=== PATIENT | female | born 1975 | race Hispanic/Latino ===

== ENCOUNTER 2017-08-12 20:38 | Emergency (ER) | payer MEDICAID ==
[2017-08-12 21:05] LABS: BASOPHILS % (AUTO) 0.6 % (0.0-5.0); HEMATOCRIT 39.3 % (36-48); LYMPHOCYTES % (AUTO) 23.8 % (21.0-51.0); MEAN CORPUSCULAR HEMOGLOBIN 30.4 pg (27.0-33.0); MEAN CORPUSCULAR VOLUME 86.9 fL (79-99); MONOCYTES % (AUTO) 7.5 % (3.0-13.0); NEUTROPHILS % (AUTO) 67.1 % (40.0-77.0); PLATELET COUNT (AUTO) 263 K/uL (130-400); RED BLOOD CELL COUNT(AUTO) 4.53 MIL/uL (4.00-5.50); RED CELL DISTRIBUTION WIDTH 13.2 % (11.0-15.5); WHITE BLOOD COUNT (AUTO) 8.8 K/uL (4.8-10.8)
[2017-08-12 21:14] LABS: AMPHET/METH SCREEN,URINE NEGATIVE (NEGATIVE); BARBITURATE SCREEN, URINE NEGATIVE (NEGATIVE); BENZODIAZEPINES SCREEN,URINE NEGATIVE (NEGATIVE); CANNABINOID SCREEN,URINE POSITIVE (NEGATIVE); COCAINE SCREEN,URINE POSITIVE (NEGATIVE); OPIATE SCREEN,URINE NEGATIVE (NEGATIVE); PHENCYCLIDINE SCREEN,URINE NEGATIVE (NEGATIVE)
[2017-08-12 21:20] LABS: CARBON DIOXIDE 29 mmol/L (21-32); CHLORIDE 102 mmol/L (101-111); CREATININE 0.8 mg/dL (0.5-1.5); GLOMERULAR FILTR. RATE CALC 84 mL/min (>60); GLUCOSE,RANDOM 107 mg/dL (70-105); INR 0.9 (0.85-1.15); PARTIAL THROMBOPLASTIN TIME 29.2 SEC (26.3-35.5); POTASSIUM 3.9 mmol/L (3.5-5.1); PROTHROMBIN TIME 9.5 SEC (9.6-11.6); SODIUM SERUM 138 mmol/L (136-145); UREA NITROGEN, BLOOD 11 mg/dL (7-18)
[2017-08-12] MEDS ORDERED: ASPIRIN 81MG TAB.CHEW ONE (21:30)
[2017-08-12] MEDS ORDERED: DEXAMETHASONE SOD PHOSPHATE 10MG/ML 1ML VIAL ONE (21:31)
[2017-08-12] MEDS ORDERED: ONDANSETRON HCL 4 MG/2 ML VIAL ONE (21:31)
[2017-08-12 21:32] LABS: B-TYPE NATRIURETIC PEPTIDE 10 pg/mL (0-100)
[2017-08-12] MEDS ORDERED: IPRATROPIUM/ALBUTEROL SULFATE 3 ML SOLUTION IH ONE (21:37)
[2017-08-12 21:52] LABS: ALANINE AMINOTRANSFERASE 25 U/L (12-78); ALBUMIN 3.6 g/dL (3.5-5.0); ASPARTATE AMINOTRANSFERASE 17 U/L (10-37); BILIRUBIN,TOTAL 0.4 mg/dL (0.2-1.0); CREATINE KINASE MB < 0.5 ng/mL (0.5-3.6); CREATINE KINASE, TOTAL 76 U/L (21-232); MYOGLOBIN 20 ng/mL (10-92); TOTAL PROTEIN, SERUM 7.6 g/dL (6.0-8.3)
== END 2017-08-12 22:27 | disposition home or self-care (01) ==
LOC: EDH 20:38
DX: J45.901 Unspecified asthma with (acute) exacerbation (principal); R07.9 Chest pain, unspecified; F14.10 Cocaine abuse, uncomplicated; Z88.0 Allergy status to penicillin; Z88.6 Allergy status to analgesic agent
CPT/HCPCS: 36415; 71045; 80053; 80305; 82550; 82553; 83874; 83880; 84484; 85025; 85610; 85730; 93005; 94640; 94761; 96374; 96375; 99285; J1100; J2405

== ENCOUNTER 2017-11-17 21:16 | Emergency (ER) | payer MEDICAID ==
[2017-11-17] MEDS ORDERED: TETRACAINE HCL 0.5% 4 ML OPHTH SOLN ONE (21:44)
== END 2017-11-17 21:59 | disposition home or self-care (01) ==
LOC: EDH 21:16
DX: T16.2XXA Foreign body in left ear, initial encounter (principal); Z88.0 Allergy status to penicillin; Z88.6 Allergy status to analgesic agent; X58.XXXA Exposure to other specified factors, initial encounter; Y93.89 Activity, other specified; Y92.89 Other specified places as the place of occurrence of the external cause; Y99.8 Other external cause status
CPT/HCPCS: 99282

== ENCOUNTER 2017-11-26 01:28 | Emergency (ER) | payer MEDICAID ==
[2017-11-26] MEDS ORDERED: SODIUM CHLORIDE 0.9% 1000ML 1,000 ML IV ONE (01:59)
[2017-11-26 02:00] LABS: BASOPHILS % (AUTO) 0.7 % (0.0-5.0); EOSINOPHILS % (AUTO) 0.8 % (0.0-8.0); HEMATOCRIT 40.6 % (36-48); LYMPHOCYTES % (AUTO) 20.2 % (21.0-51.0); MEAN CORPUSCULAR HEMOGLOBIN 30.2 pg (27.0-33.0); MEAN CORPUSCULAR HGB CONC 34.6 g/dL (32.0-36.0); MEAN CORPUSCULAR VOLUME 87.4 fL (79-99); MONOCYTES % (AUTO) 6.6 % (3.0-13.0); NEUTROPHILS % (AUTO) 71.7 % (40.0-77.0); NUCLEATED RED BLOOD CELLS 0.1 % (0.0-0.19); PLATELET COUNT (AUTO) 253 K/uL (130-400); RED BLOOD CELL COUNT(AUTO) 4.65 MIL/uL (4.00-5.50); RED CELL DISTRIBUTION WIDTH 13.1 % (11.0-15.5); WHITE BLOOD COUNT (AUTO) 14.2 K/uL (4.8-10.8)
[2017-11-26 02:09] LABS: CREATININE 0.9 mg/dL (0.5-1.5); POTASSIUM 3.8 mmol/L (3.5-5.1)
[2017-11-26 02:12] LABS: APPEARANCE,URINE Clear (CLEAR); BILIRUBIN,URINE Negative (NEGATIVE); COLOR,URINE Yellow (YELLOW); GLUCOSE, URINE (UA) Negative (NEGATIVE); KETONES,URINE Negative (NEGATIVE); LEUKOCYTE ESTERASE ,URINE Trace (NEGATIVE); NITRATE,URINE Negative (NEGATIVE); OCCULT BLOOD,URINE Trace (NEGATIVE); PH,URINE 7.5 (5.0-8.0); PROTEIN,URINE Negative (NEGATIVE); UROBILINOGEN,URINE 0.2 mg/dL (0.2-1.0)
[2017-11-26 02:14] LABS: ALBUMIN 3.5 g/dL (3.5-5.0); BILIRUBIN,TOTAL 0.3 mg/dL (0.2-1.0); TOTAL PROTEIN, SERUM 7.4 g/dL (6.0-8.3)
[2017-11-26 02:21] LABS: BACTERIA,URINE Few /HPF (None Seen); RBC,URINE 0-1 /HPF (0-1); SQUAMOUS EPITHELIAL CELL,UR Moderate /HPF (0-2)
[2017-11-26] MEDS ORDERED: HYDROMORPHONE 1 MG/1 ML AMP ONE (02:55)
[2017-11-26] MEDS ORDERED: IOPAMIDOL-370 75 ML VIAL IV ONE (03:14)
[2017-11-26] MEDS ORDERED: ONDANSETRON HCL 4 MG/2 ML VIAL ONE (03:36)
[2017-11-26] MEDS ORDERED: KETOROLAC TROMETHAMINE 30MG/ML ONE (03:36)
== END 2017-11-26 05:44 | disposition home or self-care (01) ==
LOC: EDH 01:28
DX: K52.9 Noninfective gastroenteritis and colitis, unspecified (principal); Z88.0 Allergy status to penicillin; Z88.6 Allergy status to analgesic agent
CPT/HCPCS: 36415; 71045; 74177; 80053; 81001; 82550; 83690; 84484; 84703; 85025; 85378; 93005; 96361; 96374; 96375; 99285; J1170; J1885; J2405; J7030; Q9967

== ENCOUNTER 2018-04-03 05:19 | Emergency (ER) | payer MEDICAID ==
[2018-04-03] MEDS ORDERED: ONDANSETRON HCL 4 MG/2 ML VIAL ONE (05:34)
[2018-04-03] MEDS ORDERED: DEXAMETHASONE SOD PHOSPHATE 10MG/ML 1ML VIAL ONE (05:34)
[2018-04-03] MEDS ORDERED: KETOROLAC TROMETHAMINE 30MG/ML ONE (05:35)
[2018-04-03] MEDS ORDERED: SODIUM CHLORIDE 0.9% 1000ML 1,000 ML IV ONE (05:35)
[2018-04-03 05:39] LABS: BASOPHILS % (AUTO) 0.7 % (0.0-5.0); HEMATOCRIT 42.5 % (36-48); LYMPHOCYTES % (AUTO) 28.8 % (21.0-51.0); MEAN CORPUSCULAR HEMOGLOBIN 29.9 pg (27.0-33.0); MEAN CORPUSCULAR HGB CONC 34.3 g/dL (32.0-36.0); MEAN CORPUSCULAR VOLUME 87.3 fL (79-99); MONOCYTES % (AUTO) 10.4 % (3.0-13.0); NEUTROPHILS % (AUTO) 59.1 % (40.0-77.0); PLATELET COUNT (AUTO) 253 K/uL (130-400); RED BLOOD CELL COUNT(AUTO) 4.87 MIL/uL (4.00-5.50); RED CELL DISTRIBUTION WIDTH 13.1 % (11.0-15.5); WHITE BLOOD COUNT (AUTO) 8.3 K/uL (4.8-10.8)
[2018-04-03 05:51] LABS: CREATININE 0.7 mg/dL (0.5-1.5); POTASSIUM 3.7 mmol/L (3.5-5.1)
[2018-04-03 05:56] LABS: ALBUMIN 3.4 g/dL (3.5-5.0); BILIRUBIN,DIRECT 0.1 mg/dL (0.0-0.3); BILIRUBIN,TOTAL 0.3 mg/dL (0.2-1.0); TOTAL PROTEIN, SERUM 6.8 g/dL (6.0-8.3)
[2018-04-03 06:07] LABS: APPEARANCE,URINE Cloudy (CLEAR); BILIRUBIN,URINE Negative (NEGATIVE); COLOR,URINE Yellow (YELLOW); GLUCOSE, URINE (UA) Negative (NEGATIVE); KETONES,URINE Trace mg/dL (NEGATIVE); LEUKOCYTE ESTERASE ,URINE Trace (NEGATIVE); NITRATE,URINE Negative (NEGATIVE); OCCULT BLOOD,URINE Moderate (NEGATIVE); PH,URINE 5.5 (5.0-8.0); PROTEIN,URINE Negative (NEGATIVE); UROBILINOGEN,URINE 0.2 mg/dL (0.2-1.0)
[2018-04-03 06:09] LABS: HCG,QUAL RESULT NEGATIVE (NEGATIVE)
[2018-04-03 06:14] LABS: AMPHET/METH SCREEN,URINE NEGATIVE (NEGATIVE); BARBITURATE SCREEN, URINE NEGATIVE (NEGATIVE); BENZODIAZEPINES SCREEN,URINE NEGATIVE (NEGATIVE); CANNABINOID SCREEN,URINE POSITIVE (NEGATIVE); COCAINE SCREEN,URINE POSITIVE (NEGATIVE); OPIATE SCREEN,URINE NEGATIVE (NEGATIVE); PHENCYCLIDINE SCREEN,URINE NEGATIVE (NEGATIVE)
[2018-04-03] MEDS ORDERED: IPRATROPIUM/ALBUTEROL SULFATE 3 ML SOLUTION IH ONE (06:21)
[2018-04-03 06:53] LABS: RBC,URINE 0-1 /HPF (0-1); WBC,URINE 0-1 /HPF (0-1)
[2018-04-03 06:54] LABS: BACTERIA,URINE Rare /HPF (None Seen); SQUAMOUS EPITHELIAL CELL,UR Many /HPF (0-2)
== END 2018-04-03 07:22 | disposition home or self-care (01) ==
LOC: EDH 05:19
DX: J20.9 Acute bronchitis, unspecified (principal); R10.9 Unspecified abdominal pain; R11.10 Vomiting, unspecified; F14.10 Cocaine abuse, uncomplicated; Z88.0 Allergy status to penicillin; Z88.6 Allergy status to analgesic agent
CPT/HCPCS: 36415; 71045; 74176; 80048; 80076; 80305; 81001; 81025; 82550; 83690; 84484; 85025; 93005; 94640; 96361; 96374; 96375; 99285; J1100; J1885; J2405; J7030

== ENCOUNTER 2018-05-20 10:44 | Emergency (ER) | payer MEDICAID ==
[2018-05-20] MEDS ORDERED: ONDANSETRON HCL 4 MG/2 ML VIAL ONE (11:21)
[2018-05-20 11:33] LABS: BASOPHILS % (AUTO) 0.2 % (0.0-5.0); EOSINOPHILS % (AUTO) 0.3 % (0.0-8.0); HEMATOCRIT 45.3 % (36-48); MEAN CORPUSCULAR HEMOGLOBIN 29.7 pg (27.0-33.0); MEAN CORPUSCULAR HGB CONC 33.4 g/dL (32.0-36.0); MEAN CORPUSCULAR VOLUME 88.9 fL (79-99); MONOCYTES % (AUTO) 5.4 % (3.0-13.0); NEUTROPHILS % (AUTO) 88.1 % (40.0-77.0); PLATELET COUNT (AUTO) 235 K/uL (130-400); RED BLOOD CELL COUNT(AUTO) 5.09 MIL/uL (4.00-5.50); RED CELL DISTRIBUTION WIDTH 13.5 % (11.0-15.5); WHITE BLOOD COUNT (AUTO) 16.1 K/uL (4.8-10.8)
[2018-05-20 11:34] LABS: APPEARANCE,URINE CLOUDY (CLEAR); BILIRUBIN,URINE MODERATE (NEGATIVE); COLOR,URINE YELLOW (YELLOW); GLUCOSE, URINE (UA) NEGATIVE (NEGATIVE); KETONES,URINE 15 mg/dL (NEGATIVE); LEUKOCYTE ESTERASE ,URINE NEGATIVE (NEGATIVE); NITRATE,URINE NEGATIVE (NEGATIVE); OCCULT BLOOD,URINE SMALL (NEGATIVE); PROTEIN,URINE 30 (NEGATIVE)
[2018-05-20 11:48] LABS: CREATININE 0.7 mg/dL (0.5-1.5); POTASSIUM 3.5 mmol/L (3.5-5.1)
[2018-05-20 11:51] LABS: HCG,QUAL RESULT NEGATIVE (NEGATIVE)
[2018-05-20 11:52] LABS: ALBUMIN 3.7 g/dL (3.5-5.0); BILIRUBIN,DIRECT 0.1 mg/dL (0.0-0.3); BILIRUBIN,TOTAL 0.3 mg/dL (0.2-1.0); TOTAL PROTEIN, SERUM 7.8 g/dL (6.0-8.3)
[2018-05-20] MEDS ORDERED: HYOSCYAMINE SULFATE 0.125 MG TAB.SUBL SL ONE (11:54)
[2018-05-20] MEDS ORDERED: FAMOTIDINE/PF 20 MG/2 ML VIAL IV ONE (11:54)
[2018-05-20 11:57] LABS: RBC,URINE 0-1 /HPF (0-1); WBC,URINE 0-1 /HPF (0-1)
[2018-05-20 11:58] LABS: BACTERIA,URINE Rare /HPF (None Seen); CALCIUM OXALATE CRYSTALS,UR Many /LPF (None Seen); MUCUS,URINE Moderate LPF (None Seen); SQUAMOUS EPITHELIAL CELL,UR Moderate /HPF (0-2)
[2018-05-20] MEDS ORDERED: KETOROLAC TROMETHAMINE 30MG/ML ONE (12:01)
[2018-05-20 12:58] LABS: AMPHET/METH SCREEN,URINE NEGATIVE (NEGATIVE); BARBITURATE SCREEN, URINE NEGATIVE (NEGATIVE); BENZODIAZEPINES SCREEN,URINE NEGATIVE (NEGATIVE); CANNABINOID SCREEN,URINE POSITIVE (NEGATIVE); COCAINE SCREEN,URINE POSITIVE (NEGATIVE); OPIATE SCREEN,URINE NEGATIVE (NEGATIVE); PHENCYCLIDINE SCREEN,URINE NEGATIVE (NEGATIVE)
== END 2018-05-20 13:06 | disposition home or self-care (01) ==
LOC: EDH 10:44
DX: K52.9 Noninfective gastroenteritis and colitis, unspecified (principal); E66.9 Obesity, unspecified; Z68.41 Body mass index [BMI] 40.0-44.9, adult; Z88.5 Allergy status to narcotic agent; Z88.0 Allergy status to penicillin; Z87.891 Personal history of nicotine dependence
CPT/HCPCS: 36415; 76705; 80048; 80076; 80305; 81001; 81025; 83690; 85025; 96365; 96375; 99284; J1885; J2405; J3490

== ENCOUNTER 2018-10-18 05:54 | Emergency (ER) | payer MEDICAID ==
[2018-10-18 06:06] LABS: APPEARANCE,URINE Clear (CLEAR); BILIRUBIN,URINE Negative (NEGATIVE); COLOR,URINE Yellow (YELLOW); GLUCOSE, URINE (UA) Negative (NEGATIVE); KETONES,URINE Negative (NEGATIVE); LEUKOCYTE ESTERASE ,URINE Trace (NEGATIVE); NITRATE,URINE Negative (NEGATIVE); OCCULT BLOOD,URINE Negative (NEGATIVE); PROTEIN,URINE Negative (NEGATIVE); UROBILINOGEN,URINE 0.2 mg/dL (0.2-1.0)
[2018-10-18 06:09] LABS: BACTERIA,URINE None Seen /HPF (None Seen); MUCUS,URINE None Seen LPF (None Seen); RBC,URINE None Seen /HPF (0-1); SQUAMOUS EPITHELIAL CELL,UR Rare /HPF (0-2); WBC,URINE 0-1 /HPF (0-1)
[2018-10-18] MEDS ORDERED: ACETAMINOPHEN 325 MG TAB ONE (06:35)
== END 2018-10-18 07:21 | disposition home or self-care (01) ==
LOC: EDH 05:54
DX: S40.012A Contusion of left shoulder, initial encounter (principal); L03.811 Cellulitis of head [any part, except face]; Z88.6 Allergy status to analgesic agent; Z88.0 Allergy status to penicillin; Z72.0 Tobacco use; Z98.890 Other specified postprocedural states; X58.XXXA Exposure to other specified factors, initial encounter; Y93.89 Activity, other specified; Y92.89 Other specified places as the place of occurrence of the external cause; Y99.8 Other external cause status
CPT/HCPCS: 81001; 81025

== ENCOUNTER 2019-09-10 11:12 | Emergency (ER) | payer MEDICAID, OTHER ==
[2019-09-10] MEDS ORDERED: ONDANSETRON HCL 4 MG/2 ML VIAL ONE (11:28)
[2019-09-10] MEDS ORDERED: KETOROLAC TROMETHAMINE 30MG/ML ONE (11:28)
[2019-09-10 12:07] LABS: APPEARANCE,URINE Cloudy (CLEAR); BILIRUBIN,URINE Negative (NEGATIVE); COLOR,URINE Yellow (YELLOW); GLUCOSE, URINE (UA) Negative (NEGATIVE); KETONES,URINE Negative (NEGATIVE); LEUKOCYTE ESTERASE ,URINE Negative (NEGATIVE); NITRATE,URINE Negative (NEGATIVE); OCCULT BLOOD,URINE Negative (NEGATIVE); PH,URINE 5.5 (5.0-8.0); PROTEIN,URINE Negative (NEGATIVE); UROBILINOGEN,URINE 0.2 mg/dL (0.2-1.0)
[2019-09-10 12:13] LABS: HCG,QUAL RESULT NEGATIVE (NEGATIVE)
[2019-09-10 12:15] LABS: AMPHET/METH SCREEN,URINE NEGATIVE (NEGATIVE); BARBITURATE SCREEN, URINE NEGATIVE (NEGATIVE); BENZODIAZEPINES SCREEN,URINE NEGATIVE (NEGATIVE); CANNABINOID SCREEN,URINE POSITIVE (NEGATIVE); COCAINE SCREEN,URINE POSITIVE (NEGATIVE); OPIATE SCREEN,URINE NEGATIVE (NEGATIVE); PHENCYCLIDINE SCREEN,URINE NEGATIVE (NEGATIVE); RBC,URINE 0-1 /HPF (0-1)
[2019-09-10 12:16] LABS: BACTERIA,URINE Few /HPF (None Seen); SQUAMOUS EPITHELIAL CELL,UR 50-100 /HPF (0-2); WBC,URINE 0-1 /HPF (0-1)
== END 2019-09-10 12:37 | disposition home or self-care (01) ==
LOC: EDH 11:12
DX: M54.5 Low back pain (principal); F14.10 Cocaine abuse, uncomplicated; R11.2 Nausea with vomiting, unspecified; Z88.0 Allergy status to penicillin; Z88.6 Allergy status to analgesic agent; Z98.890 Other specified postprocedural states
CPT/HCPCS: 80305; 81001; 81025; 96361; 96374; 96375; 99284; J1885; J2405

== ENCOUNTER 2022-02-28 17:34 | Emergency (ER) | payer OTHER ==
[~2022-02-28] VITALS: Ht 154.9 cm; Wt 103.4 kg
[2022-02-28 17:36] VITALS: BP 140/87
[2022-02-28] MEDS ORDERED: ONDANSETRON ODT 4MG TAB SL ONE (18:30)
== END 2022-02-28 19:02 | disposition left against medical advice (07) ==
LOC: EDH 17:34
DX: R51.9 Headache, unspecified (principal); R11.0 Nausea; H53.8 Other visual disturbances; Z88.0 Allergy status to penicillin; Z88.5 Allergy status to narcotic agent
CPT/HCPCS: 81025

== ENCOUNTER 2022-04-04 17:10 | Emergency (ER) | payer OTHER ==
[~2022-04-04] VITALS: Ht 152.4 cm; Wt 102.1 kg
[2022-04-04] MEDS ORDERED: IPRATROPIUM/ALBUTEROL SULFATE 3 ML SOLUTION IH ONE ×2 (17:30→17:34)
[2022-04-04] MEDS ORDERED: SOLU-MEDROL 125MG VIAL IVP ONE (17:30)
[2022-04-04 17:45] VITALS: BP 101/78
[2022-04-04] MEDS ORDERED: ALBUTEROL 0.083% 2.5 MG/3 ML INH IH ONE (18:30)
[2022-04-04] MEDS ORDERED: D-ME118S47 PO (20:03)
[2022-04-04] MEDS ORDERED: AZIT1PAC7 PO (20:03)
[2022-04-04] MEDS ORDERED: ALBU2.5V2 IH (20:03)
[2022-04-04] MEDS ORDERED: METH4TAB3 PO (20:03)
== END 2022-04-04 21:06 | disposition home or self-care (01) ==
LOC: EDH 17:10
DX: J45.901 Unspecified asthma with (acute) exacerbation (principal); Z20.822 Contact with and (suspected) exposure to COVID-19; Z88.0 Allergy status to penicillin; Z88.5 Allergy status to narcotic agent; Z79.52 Long term (current) use of systemic steroids
CPT/HCPCS: 99285; 96374; 71045; 87635; 87804 ×2; 94640 ×3; C9803; J2930

== ENCOUNTER 2022-07-22 20:02 | Emergency (ER) | payer OTHER ==
[~2022-07-22] VITALS: Ht 154.9 cm; Wt 102.1 kg
[~2022-07-22 20:02] MED LIST: ALBU2.5V2 IH; AZIT1PAC7 PO; D-ME118S47 PO; METH4TAB3 PO
[2022-07-22] MEDS ORDERED: KETOROLAC 30MG VIAL (30MG/ML) IM ONE (22:00)
[2022-07-23] MEDS ORDERED: IBUP-2070 PO (00:28)
[2022-07-23 00:43] VITALS: BP 125/62
== END 2022-07-23 00:44 | disposition home or self-care (01) ==
LOC: EDH 20:02
DX: S09.90XA Unspecified injury of head, initial encounter (principal); S50.02XA Contusion of left elbow, initial encounter; X58.XXXA Exposure to other specified factors, initial encounter; Y93.89 Activity, other specified; Y92.89 Other specified places as the place of occurrence of the external cause; Y99.8 Other external cause status; Z88.0 Allergy status to penicillin; Z88.5 Allergy status to narcotic agent; Z79.899 Other long term (current) drug therapy; Z98.890 Other specified postprocedural states
CPT/HCPCS: 99285; 72125; 70450; 73080; 71101; 96372; 93005 ×2; J1885

== ENCOUNTER 2023-10-25 22:42 | Inpatient (IN) | payer BC, OTHER ==
[~2023-10-25] VITALS: Ht 149.9 cm; Wt 101.3 kg
[~2023-10-25 22:42] MED LIST changes: +BROM118S48 PO; -D-ME118S47 PO; +IBUP-2070 PO
[2023-10-25] MEDS: ORPHENADRINE CITRATE 30 MG/ML ML IM ONE (23:05)
[2023-10-25] MEDS: KETOROLAC 30MG VIAL (30MG/ML) IM ONE (23:05)
[2023-10-25 23:29] LABS: BASOPHILS # (AUTO) 0.05 K/uL (0.00-0.20); BASOPHILS % (AUTO) 0.2 % (0.0-5.0); EOSINOPHILS # (AUTO) 0.05 K/uL (0.00-0.70); EOSINOPHILS % (AUTO) 0.2 % (0.0-8.0); HEMATOCRIT 41.1 % (36-48); IMMATURE GRANULOCYTE ABSOLUTE 0.19 K/uL (0-1); LYMPHOCYTES # (AUTO) 2.1 K/uL (1.0-4.8); LYMPHOCYTES % (AUTO) 10.1 % (21.0-51.0); MEAN CORPUSCULAR HEMOGLOBIN 30.3 pg (27.0-33.0); MEAN CORPUSCULAR HGB CONC 33.6 g/dL (32.0-36.0); MEAN CORPUSCULAR VOLUME 90.3 fL (79-99); MONOCYTES # (AUTO) 1.2 K/uL (0.1-1.0); MONOCYTES % (AUTO) 5.6 % (3.0-13.0); NEUTROPHILS # (AUTO) 16.9 K/uL (1.8-7.7); PLATELET COUNT (AUTO) 291 K/uL (130-400); RED BLOOD CELL COUNT(AUTO) 4.55 MIL/uL (4.00-5.50); RED CELL DISTRIBUTION WIDTH 12.8 % (11.0-15.5); WHITE BLOOD COUNT (AUTO) 20.4 K/uL (4.8-10.8)
[2023-10-25] MEDS: LACTATED RINGERS 1000ML 1,000 ML IV ONE (23:41)
[2023-10-25 23:55] LABS: CREATININE 0.8 mg/dL (0.5-1.0); POTASSIUM 3.7 mmol/L (3.5-5.1)
[2023-10-25 23:59] LABS: ALBUMIN 3.8 g/dL (3.5-5.0); BILIRUBIN,TOTAL 0.9 mg/dL (0.2-1.0)
[2023-10-26] MEDS: ONDANSETRON 4MG INJ IVP ONE (04:14)
[2023-10-26] MEDS: MEPERIDINE-PF 25 MG/ML SYG IM STA (04:16)
[2023-10-26 04:24] VITALS: TEMP 101.2
[2023-10-26] MEDS: ACETAMINOPHEN 500 MG TABLET PO ONE (04:24)
[2023-10-26 04:39] LABS: APPEARANCE,URINE CLOUDY (CLEAR); BILIRUBIN,URINE NEGATIVE (NEGATIVE); COLOR,URINE YELLOW (YELLOW); GLUCOSE, URINE (UA) NEGATIVE (NEGATIVE); KETONES,URINE 10 mg/dL (NEGATIVE); LEUKOCYTE ESTERASE ,URINE 25 Leu/uL (NEGATIVE); NITRATE,URINE 1+ (NEGATIVE); OCCULT BLOOD,URINE SMALL (NEGATIVE); PROTEIN,URINE 30 mg/dL (NEGATIVE); UROBILINOGEN,URINE 3 mg/dL (0.2-1.0)
[2023-10-26 04:46] LABS: AMPHET/METH SCREEN,URINE POSITIVE (NEGATIVE); BARBITURATE SCREEN, URINE NEGATIVE (NEGATIVE); BENZODIAZEPINES SCREEN,URINE NEGATIVE (NEGATIVE); CANNABINOID SCREEN,URINE POSITIVE (NEGATIVE); COCAINE SCREEN,URINE POSITIVE (NEGATIVE); OPIATE SCREEN,URINE NEGATIVE (NEGATIVE); PHENCYCLIDINE SCREEN,URINE NEGATIVE (NEGATIVE)
[2023-10-26 05:00] LABS: BACTERIA,URINE MOD /HPF (None Seen); MUCUS,URINE RARE LPF (None Seen); RBC,URINE 0-1 /HPF (0-1); SQUAMOUS EPITHELIAL CELL,UR FEW /HPF (0-2)
[2023-10-26] MEDS ORDERED: IOHEXOL-350 75 ML VIAL IV ONE (05:27)
[2023-10-26] MEDS: LEVOFLOXACIN 500 MG/D5W 100 ML 100 ML IV STA (06:56)
[2023-10-26] MEDS ORDERED: MORPHINE 4 MG SYG IVP PRN (08:00)
[2023-10-26] MEDS ORDERED: HYDRALAZINE 20MG/ML VIAL IV PRN (08:00)
[2023-10-26] MEDS ORDERED: DIAZEPAM 5 MG/ML 2 ML SYG IV PRN (08:00)
[2023-10-26] MEDS ORDERED: MORPHINE 2 MG SYG IVP PRN (08:00)
[2023-10-26 08:14] LABS: ABG BASE EXCESS 0.3 mmol/L (-2.0-3.0); ABG HCO3 23.9 mmol/L (21.0-28.0); ABG OXYGEN SATURATION 97.2 % (95.0-99.0); ABG PCO2 36 mmHg (32-45); ABG PH 7.444 (7.35-7.450); DEVICE COMMENT RRVERO RN; PO2, ARTERIAL BG 89.6 mmHg (83.0-108.0); VENT MODE, BG RA (ROOM AIR)
[2023-10-26] MEDS: ONDANSETRON 4MG INJ IVP PRN (08:46)
[2023-10-26] MEDS: HYDROMORPHONE 0.5 MG SYG (0.5MG/0.5ML) IVP PRN (08:47)
[2023-10-26] MEDS: LACTATED RINGERS 1000ML 1,000 ML IV SCH (09:23)
[2023-10-26] MEDS: LEVOFLOXACIN 750 MG/D5W 150ML BAG IV SCH (09:23)
[2023-10-26] MEDS: M.V.I. IV [ADULT] 10 ML, FOLIC ACID 1 MG, THIAMINE HCL 300 MG in 0.9%NACL 1000ML 1,000 ML IV SCH (09:24)
[2023-10-26 10:13] LABS: INFLUENZA TYPE A NEGATIVE FOR TYPE A (NEG)
[2023-10-26 10:14] LABS: INFLUENZA TYPE B NEGATIVE FOR TYPE B (NEG)
[2023-10-26 10:15] LABS: SARS-CoV-2, RNA, NAAT NEGATIVE SARS CoV-2 (NEGATIVE)
[2023-10-26] MEDS: HYDROMORPHONE 1 MG INJ IVP PRN (10:34)
[2023-10-26] MEDS: PANTOPRAZOLE 40 MG/VIAL ONE (11:18)
[2023-10-26] MEDS: PANTOPRAZOLE 40 MG/VIAL IVP ONE (11:18)
[2023-10-26] MEDS: INSULIN HUMULIN R 100 UNIT/ML 3ML SQ SCH (11:30)
[2023-10-26] MEDS: METRONIDAZOLE 500MG/100ML BAG 100 ML IVPB SCH (14:08)
[2023-10-26 15:31] VITALS: BP 160/64; PULSE 82; RESP 18
[2023-10-26 15:40] VITALS: O2SAT 98
[2023-10-26 20:00] VITALS: O2SAT 98
[2023-10-26 20:15] VITALS: BP 124/71; PULSE 88; RESP 20
[2023-10-26] MEDS: HEPARIN 5,000 UNIT VIAL SQ SCH (23:30)
[2023-10-27] VITALS (29 sets, daily range): BP systolic 101–131; BP diastolic 58–84; PULSE 75–103; RESP 15–20; O2SAT 95–98
[2023-10-27 04:46] LABS: BASOPHILS # (AUTO) 0.03 K/uL (0.00-0.20); BASOPHILS % (AUTO) 0.2 % (0.0-5.0); EOSINOPHILS # (AUTO) 0.02 K/uL (0.00-0.70); EOSINOPHILS % (AUTO) 0.1 % (0.0-8.0); HEMATOCRIT 34.2 % (36-48); IMMATURE GRANULOCYTE ABSOLUTE 0.14 K/uL (0-1); MEAN CORPUSCULAR HEMOGLOBIN 29.9 pg (27.0-33.0); MEAN CORPUSCULAR HGB CONC 32.5 g/dL (32.0-36.0); MEAN CORPUSCULAR VOLUME 92.2 fL (79-99); MONOCYTES # (AUTO) 0.8 K/uL (0.1-1.0); MONOCYTES % (AUTO) 4.8 % (3.0-13.0); NEUTROPHILS # (AUTO) 14.9 K/uL (1.8-7.7); NEUTROPHILS % (AUTO) 88.1 % (40.0-77.0); PLATELET COUNT (AUTO) 199 K/uL (130-400); RED BLOOD CELL COUNT(AUTO) 3.71 MIL/uL (4.00-5.50); RED CELL DISTRIBUTION WIDTH 13.1 % (11.0-15.5); WHITE BLOOD COUNT (AUTO) 16.9 K/uL (4.8-10.8)
[2023-10-27 04:56] LABS: INR 1.02 (0.85-1.15)
[2023-10-27 04:58] LABS: PARTIAL THROMBOPLASTIN TIME 44.3 SEC (26.3-35.5)
[2023-10-27 05:02] LABS: ALBUMIN 2.4 g/dL (3.5-5.0); BILIRUBIN,TOTAL 0.6 mg/dL (0.2-1.0); CREATININE 0.7 mg/dL (0.5-1.0); MAGNESIUM 1.9 mg/dL (1.80-2.40); POTASSIUM 3.6 mmol/L (3.5-5.1); TOTAL PROTEIN, SERUM 6.2 g/dL (6.0-8.3)
[2023-10-27 05:48] LABS: HEMOGLOBIN A1C 5.3 % (4.0-6.0)
[2023-10-27] MEDS: PANTOPRAZOLE 40 MG/VIAL IVP SCH (08:40)
[2023-10-27] MEDS ORDERED: MIDAZOLAM HCL 1 MG/ML 2ML VIAL ONE (09:30)
[2023-10-27] MEDS ORDERED: PROPOFOL 10 MG/ML 20ML VIAL IV ONE (09:31)
[2023-10-27] MEDS ORDERED: FENTANYL CITRATE PF 50 MCG/1 ML 2ML VIAL ONE ×3 (09:31→11:56)
[2023-10-27] MEDS ORDERED: ONDANSETRON 4MG INJ ONE (09:31)
[2023-10-27] MEDS ORDERED: ROCURONIUM BROMIDE 10MG/1ML 5ML VL ONE ×2 (09:31→10:27)
[2023-10-27] MEDS ORDERED: ROPIVACAINE 0.5% 5MG/ML 30ML ONE (09:43)
[2023-10-27] MEDS ORDERED: DEXAMETHASONE SOD PHOSPHATE 10MG/ML 1ML VIAL ONE (09:46)
[2023-10-27] MEDS ORDERED: DEXTROSE 50%-WATER 50 ML DISP.SYRIN IV PRN (11:30)
[2023-10-27] MEDS ORDERED: GLUCAGON 1MG KIT 1 MG ML IM PRN (11:30)
[2023-10-27] MEDS ORDERED: MEPERIDINE-PF 25 MG/ML SYG ONE (11:43)
[2023-10-27] MEDS ORDERED: GLYCOPYRROLATE 0.2 MG/ML 5 ML VIAL ONE (11:48)
[2023-10-27] MEDS ORDERED: NEOSTIGMINE METHYLSULFATE 1MG/ML IV ONE (11:48)
[2023-10-27] MEDS: ONDANSETRON 4MG INJ ONE (12:29)
[2023-10-27] MEDS: ACETAMINOPHEN 1,000 MG/100 ML VIAL IV ONE (12:29)
[2023-10-27] MEDS ORDERED: COMPOUND IV REFRIGERATED 1 EACH IVSOLN MISC PRN (12:30)
[2023-10-27] MEDS: MEPERIDINE-PF 25 MG/ML SYG ONE ×2 (12:30→12:42)
[2023-10-27] MEDS: METOCLOPRAMIDE 10 MG/2 ML VIAL ONE (12:33)
[2023-10-27] MEDS: SUGAMMADEX SODIUM 200 MG/2 ML VIAL IV ONE (13:31)
[2023-10-28] MEDS: KETOROLAC 30MG VIAL (30MG/ML) IVP ONE (01:35)
[2023-10-28] MEDS: SIMETHICONE 80 MG TAB.CHEW PO PRN (01:36)
[2023-10-28] MEDS: GUAIFENESIN-DM 200/20 MG 10 ML PO PRN (01:36)
[2023-10-28 05:38] VITALS: BP 126/74; PULSE 78; RESP 20
[2023-10-28 06:31] LABS: BASOPHILS # (AUTO) 0.02 K/uL (0.00-0.20); BASOPHILS % (AUTO) 0.1 % (0.0-5.0); HEMATOCRIT 34.8 % (36-48); IMMATURE GRANULOCYTE ABSOLUTE 0.14 K/uL (0-1); LYMPHOCYTES # (AUTO) 0.7 K/uL (1.0-4.8); LYMPHOCYTES % (AUTO) 3.3 % (21.0-51.0); MEAN CORPUSCULAR HEMOGLOBIN 29.9 pg (27.0-33.0); MEAN CORPUSCULAR HGB CONC 31.9 g/dL (32.0-36.0); MEAN CORPUSCULAR VOLUME 93.8 fL (79-99); MONOCYTES # (AUTO) 1.1 K/uL (0.1-1.0); MONOCYTES % (AUTO) 5.2 % (3.0-13.0); NEUTROPHILS # (AUTO) 18.7 K/uL (1.8-7.7); NEUTROPHILS % (AUTO) 90.7 % (40.0-77.0); PLATELET COUNT (AUTO) 256 K/uL (130-400); RED BLOOD CELL COUNT(AUTO) 3.71 MIL/uL (4.00-5.50); RED CELL DISTRIBUTION WIDTH 13.1 % (11.0-15.5); WHITE BLOOD COUNT (AUTO) 20.6 K/uL (4.8-10.8)
[2023-10-28 06:36] LABS: CREATININE 0.7 mg/dL (0.5-1.0); MAGNESIUM 2.1 mg/dL (1.80-2.40); PHOSPHORUS 2.5 mg/dL (2.5-4.9); POTASSIUM 3.8 mmol/L (3.5-5.1)
[2023-10-28 08:14] VITALS: BP 117/75; PULSE 75; RESP 18
[2023-10-28 08:30] VITALS: O2SAT 99
[2023-10-28] MEDS: KETOROLAC 15MG/ML VIAL (15MG/ML) IV SCH (11:44)
[2023-10-28 15:22] VITALS: BP 120/71; PULSE 89; RESP 18
[2023-10-28 20:55] VITALS: BP 135/79; PULSE 89; RESP 20
[2023-10-29 00:49] VITALS: BP 161/92; PULSE 91; RESP 18
[2023-10-29 03:41] VITALS: BP 164/84; PULSE 91; RESP 18
[2023-10-29 06:05] LABS: BASOPHILS # (AUTO) 0.03 K/uL (0.00-0.20); BASOPHILS % (AUTO) 0.2 % (0.0-5.0); EOSINOPHILS # (AUTO) 0.06 K/uL (0.00-0.70); EOSINOPHILS % (AUTO) 0.4 % (0.0-8.0); HEMATOCRIT 32.6 % (36-48); IMMATURE GRANULOCYTE ABSOLUTE 0.11 K/uL (0-1); LYMPHOCYTES % (AUTO) 5.5 % (21.0-51.0); MEAN CORPUSCULAR HEMOGLOBIN 29.4 pg (27.0-33.0); MEAN CORPUSCULAR HGB CONC 32.2 g/dL (32.0-36.0); MEAN CORPUSCULAR VOLUME 91.3 fL (79-99); MONOCYTES # (AUTO) 1.3 K/uL (0.1-1.0); MONOCYTES % (AUTO) 7.6 % (3.0-13.0); NEUTROPHILS # (AUTO) 14.7 K/uL (1.8-7.7); NEUTROPHILS % (AUTO) 85.7 % (40.0-77.0); PLATELET COUNT (AUTO) 296 K/uL (130-400); RED BLOOD CELL COUNT(AUTO) 3.57 MIL/uL (4.00-5.50); RED CELL DISTRIBUTION WIDTH 13.1 % (11.0-15.5); WHITE BLOOD COUNT (AUTO) 17.1 K/uL (4.8-10.8)
[2023-10-29 06:32] LABS: ALBUMIN 2.6 g/dL (3.5-5.0); BILIRUBIN,TOTAL 0.4 mg/dL (0.2-1.0); CREATININE 0.6 mg/dL (0.5-1.0); MAGNESIUM 2.2 mg/dL (1.80-2.40); POTASSIUM 3.4 mmol/L (3.5-5.1); TOTAL PROTEIN, SERUM 7.2 g/dL (6.0-8.3)
[2023-10-29 08:00] VITALS: BP 139/80; PULSE 71; RESP 22; O2SAT 100
[2023-10-29 12:00] VITALS: BP 136/85; PULSE 91; RESP 20
[2023-10-29 16:00] VITALS: BP 145/88; PULSE 93; RESP 18
[2023-10-29 20:00] VITALS: BP 157/99; PULSE 95; RESP 18; O2SAT 100
[2023-10-30] VITALS: BP 142/88; PULSE 92; RESP 22
[2023-10-30 04:00] VITALS: BP 145/90; PULSE 88; RESP 19
[2023-10-30 04:55] LABS: HEMATOCRIT 34.3 % (36-48); MEAN CORPUSCULAR HEMOGLOBIN 29.4 pg (27.0-33.0); MEAN CORPUSCULAR HGB CONC 31.8 g/dL (32.0-36.0); MEAN CORPUSCULAR VOLUME 92.5 fL (79-99); RED BLOOD CELL COUNT(AUTO) 3.71 MIL/uL (4.00-5.50); RED CELL DISTRIBUTION WIDTH 13.2 % (11.0-15.5); WHITE BLOOD COUNT (AUTO) 11.9 K/uL (4.8-10.8)
[2023-10-30 05:10] LABS: CREATININE 0.5 mg/dL (0.5-1.0); MAGNESIUM 1.9 mg/dL (1.80-2.40); POTASSIUM 3.1 mmol/L (3.5-5.1)
[2023-10-30 08:00] VITALS: BP 158/93; PULSE 94; RESP 24; O2SAT 100
[2023-10-30 11:49] VITALS: BP 129/75; PULSE 90; RESP 18
[2023-10-30 16:00] VITALS: BP 134/90; PULSE 88; RESP 16
[2023-10-30] MEDS: DOCUSATE SODIUM 100 MG CAP PO ONE (17:18)
[2023-10-30 20:00] VITALS: BP 143/95; PULSE 83; RESP 18; O2SAT 100
[2023-10-31] VITALS (7 sets, daily range): BP systolic 121–140; BP diastolic 73–88; PULSE 78–87; RESP 18–22; O2SAT 96–100
[2023-10-31] MEDS: DIAZEPAM 5 MG/ML 2 ML SYG IV PRN (01:54)
[2023-10-31 03:46] LABS: BASOPHILS # (AUTO) 0.03 K/uL (0.00-0.20); BASOPHILS % (AUTO) 0.3 % (0.0-5.0); EOSINOPHILS # (AUTO) 0.08 K/uL (0.00-0.70); EOSINOPHILS % (AUTO) 0.7 % (0.0-8.0); HEMATOCRIT 29.6 % (36-48); IMMATURE GRANULOCYTE ABSOLUTE 0.13 K/uL (0-1); LYMPHOCYTES # (AUTO) 1.2 K/uL (1.0-4.8); LYMPHOCYTES % (AUTO) 10.7 % (21.0-51.0); MEAN CORPUSCULAR HEMOGLOBIN 29.5 pg (27.0-33.0); MEAN CORPUSCULAR HGB CONC 32.8 g/dL (32.0-36.0); MONOCYTES # (AUTO) 0.8 K/uL (0.1-1.0); MONOCYTES % (AUTO) 7.5 % (3.0-13.0); NEUTROPHILS # (AUTO) 8.8 K/uL (1.8-7.7); NEUTROPHILS % (AUTO) 79.6 % (40.0-77.0); PLATELET COUNT (AUTO) 262 K/uL (130-400); RED BLOOD CELL COUNT(AUTO) 3.29 MIL/uL (4.00-5.50); RED CELL DISTRIBUTION WIDTH 13.2 % (11.0-15.5); WHITE BLOOD COUNT (AUTO) 11.1 K/uL (4.8-10.8)
[2023-10-31 04:19] LABS: BILIRUBIN,TOTAL 0.3 mg/dL (0.2-1.0); CREATININE 0.6 mg/dL (0.5-1.0); MAGNESIUM 1.7 mg/dL (1.80-2.40); TOTAL PROTEIN, SERUM 5.7 g/dL (6.0-8.3)
[2023-10-31 04:39] LABS: POTASSIUM 2.8 mmol/L (3.5-5.1)
[2023-10-31] MEDS ORDERED: POTASSIUM CHLORIDE 10% ELIXIR 20 MEQ/15 ML UDCUP PO PRN (05:00)
[2023-10-31] MEDS: MAGNESIUM 2GM PREMIX 50ML 50 ML IV PRN (05:10)
[2023-10-31] MEDS: KCL 20 MEQ ERTAB PO PRN (05:11)
[2023-10-31] MEDS: ACETAMINOPHEN 325 MG TAB PO PRN (08:33)
[2023-10-31 16:46] LABS: MAGNESIUM 1.9 mg/dL (1.80-2.40); POTASSIUM 3.3 mmol/L (3.5-5.1)
[2023-10-31] MEDS: POTASSIUM CHLORIDE 20MEQ/100ML 100 ML IV PRN (17:07)
[2023-11-01] VITALS: BP 140/71; PULSE 89; RESP 20
[2023-11-01 04:00] VITALS: BP 133/75; PULSE 87; RESP 20
[2023-11-01 04:06] LABS: BASOPHILS # (AUTO) 0.05 K/uL (0.00-0.20); BASOPHILS % (AUTO) 0.5 % (0.0-5.0); EOSINOPHILS # (AUTO) 0.07 K/uL (0.00-0.70); EOSINOPHILS % (AUTO) 0.6 % (0.0-8.0); HEMATOCRIT 31.7 % (36-48); IMMATURE GRANULOCYTE ABSOLUTE 0.23 K/uL (0-1); LYMPHOCYTES # (AUTO) 1.3 K/uL (1.0-4.8); LYMPHOCYTES % (AUTO) 12.4 % (21.0-51.0); MEAN CORPUSCULAR HEMOGLOBIN 29.7 pg (27.0-33.0); MEAN CORPUSCULAR HGB CONC 32.2 g/dL (32.0-36.0); MEAN CORPUSCULAR VOLUME 92.2 fL (79-99); MONOCYTES # (AUTO) 1.1 K/uL (0.1-1.0); MONOCYTES % (AUTO) 10.2 % (3.0-13.0); NEUTROPHILS % (AUTO) 74.2 % (40.0-77.0); PLATELET COUNT (AUTO) 299 K/uL (130-400); RED BLOOD CELL COUNT(AUTO) 3.44 MIL/uL (4.00-5.50); RED CELL DISTRIBUTION WIDTH 13.4 % (11.0-15.5); WHITE BLOOD COUNT (AUTO) 10.8 K/uL (4.8-10.8)
[2023-11-01 04:20] LABS: BILIRUBIN,DIRECT 0.1 mg/dL (0.0-0.3); BILIRUBIN,TOTAL 0.3 mg/dL (0.2-1.0); CREATININE 0.5 mg/dL (0.5-1.0); MAGNESIUM 1.7 mg/dL (1.80-2.40); TOTAL PROTEIN, SERUM 5.7 g/dL (6.0-8.3)
[2023-11-01 04:41] LABS: POTASSIUM 2.8 mmol/L (3.5-5.1)
[2023-11-01 08:00] VITALS: BP 136/75; PULSE 89; RESP 18; O2SAT 100
[2023-11-01] MEDS ORDERED: MAGNESIUM 2GM PREMIX 50ML 50 ML IV SCH (09:00)
[2023-11-01] MEDS: MAGNESIUM 2GM PREMIX 50ML 50 ML IV SCH (09:22)
[2023-11-01 12:00] VITALS: BP 141/73; PULSE 83; RESP 18
[2023-11-01] MEDS: CYCLOBENZAPRINE HCL 10 MG TABLET PO ONE (12:53)
[2023-11-01 13:25] LABS: MAGNESIUM 2.3 mg/dL (1.80-2.40); POTASSIUM 3.3 mmol/L (3.5-5.1)
[2023-11-01 16:00] VITALS: BP 130/72; PULSE 84; RESP 18
[2023-11-01 20:00] VITALS: BP 121/75; PULSE 83; RESP 20; O2SAT 99
== END 2023-11-01 21:35 | disposition left against medical advice (07) | DRG 854 ==
LOC: EDH 22:42 → EDHIP 10-26 07:37 → 4DH 10-26 15:15
PROVIDERS: ADMIT Internal Medicine; ATTEND Internal Medicine
PROC: 0D9670Z Drainage of Stomach with Drainage Device, Via Natural or Artificial Opening (ICD-10-PCS; 2023-10-26)
PROC: 0WUF0JZ Supplement Abdominal Wall with Synthetic Substitute, Open Approach (ICD-10-PCS; principal; 2023-10-27 10:07)
DX: A41.9 Sepsis, unspecified organism (principal); K43.0 Incisional hernia with obstruction, without gangrene; Z68.41 Body mass index [BMI] 40.0-44.9, adult; Z20.822 Contact with and (suspected) exposure to COVID-19; E66.01 Morbid (severe) obesity due to excess calories; G47.33 Obstructive sleep apnea (adult) (pediatric); F12.10 Cannabis abuse, uncomplicated; F14.10 Cocaine abuse, uncomplicated; Z88.0 Allergy status to penicillin; Z88.5 Allergy status to narcotic agent; Z98.891 History of uterine scar from previous surgery
CPT/HCPCS: 36415; 36600; 71045; 74018; 74177; 80048; 80053; 80076; 80305; 81001; 81025; 82550; 82803; 82948; 83036; 83735; 84100; 84132; 84145; 84484; 85025; 85027; 85610; 85730; 87070; 87077; 87088; 87186; 87635; 87804; 88302; 93005; 96361; 96372; 99291; C9113; G0378; J1100; J1170; J1644; J1885; J1956; J2175; J2250; J2405; J2704; J2710; J2765; J2795; J3010; J3360; J3411; J3475; J3480; J3490; J7030; Q9967; A4216; A4222; A4223; A4452; A4600; A4649; A4930; C1781; G8980-CI; G8983-CI; J2360

== ENCOUNTER 2023-11-08 11:42 | Inpatient (IN) | payer BC ==
[~2023-11-08] VITALS: Ht 154.9 cm; Wt 97.7 kg
[2023-11-08] MEDS: 0.9%NACL 1000ML 1,000 ML IV ONE (12:53)
[2023-11-08] MEDS: ONDANSETRON 4MG INJ IVP ONE ×2 (12:53→14:58)
[2023-11-08 13:07] LABS: HCG,QUALITATIVE URINE NEGATIVE (NEGATIVE)
[2023-11-08 13:09] LABS: APPEARANCE,URINE CLEAR (CLEAR); BILIRUBIN,URINE NEGATIVE (NEGATIVE); COLOR,URINE LIGHT-YELLOW (YELLOW); GLUCOSE, URINE (UA) NEGATIVE (NEGATIVE); KETONES,URINE NEGATIVE (NEGATIVE); LEUKOCYTE ESTERASE ,URINE NEGATIVE Leu/uL (NEGATIVE); MUCUS,URINE RARE LPF (None Seen); NITRATE,URINE NEGATIVE (NEGATIVE); OCCULT BLOOD,URINE SMALL (NEGATIVE); PH,URINE 5.5 (5.0-8.0); PROTEIN,URINE NEGATIVE (NEGATIVE); SQUAMOUS EPITHELIAL CELL,UR FEW /HPF (0-2); UROBILINOGEN,URINE 0.2 mg/dL (0.2-1.0); WBC,URINE 0-1 /HPF (0-1)
[2023-11-08 13:25] LABS: BASOPHILS # (AUTO) 0.07 K/uL (0.00-0.20); BASOPHILS % (AUTO) 0.6 % (0.0-5.0); EOSINOPHILS # (AUTO) 0.16 K/uL (0.00-0.70); EOSINOPHILS % (AUTO) 1.3 % (0.0-8.0); HEMATOCRIT 32.7 % (36-48); IMMATURE GRANULOCYTE ABSOLUTE 0.12 K/uL (0-1); LYMPHOCYTES # (AUTO) 1.5 K/uL (1.0-4.8); LYMPHOCYTES % (AUTO) 12.4 % (21.0-51.0); MEAN CORPUSCULAR HGB CONC 32.4 g/dL (32.0-36.0); MEAN CORPUSCULAR VOLUME 89.3 fL (79-99); MONOCYTES % (AUTO) 8.4 % (3.0-13.0); NEUTROPHILS # (AUTO) 9.4 K/uL (1.8-7.7); NEUTROPHILS % (AUTO) 76.3 % (40.0-77.0); PLATELET COUNT (AUTO) 416 K/uL (130-400); RED BLOOD CELL COUNT(AUTO) 3.66 MIL/uL (4.00-5.50); RED CELL DISTRIBUTION WIDTH 13.1 % (11.0-15.5); WHITE BLOOD COUNT (AUTO) 12.3 K/uL (4.8-10.8)
[2023-11-08 13:42] LABS: CARBON DIOXIDE 29 mmol/L (21-32); CHLORIDE 99 mmol/L (101-111); CREATININE 0.6 mg/dL (0.5-1.0); GLOMERULAR FILTR. RATE CALC 112 mL/min (>90); GLUCOSE,RANDOM 85 mg/dL (70-105); POTASSIUM 3.9 mmol/L (3.5-5.1); SODIUM SERUM 133 mmol/L (136-145); UREA NITROGEN, BLOOD 5 mg/dL (7-18)
[2023-11-08 13:50] LABS: ALANINE AMINOTRANSFERASE 16 U/L (12-78); ALBUMIN 2.6 g/dL (3.5-5.0); ASPARTATE AMINOTRANSFERASE 11 U/L (10-37); BILIRUBIN,TOTAL 0.3 mg/dL (0.2-1.0); TOTAL PROTEIN, SERUM 6.9 g/dL (6.0-8.3)
[2023-11-08 13:52] LABS: ALCOHOL, BLOOD < 3 mg/dL (0-10)
[2023-11-08] MEDS ORDERED: IOHEXOL-350 75 ML VIAL IV ONE (14:26)
[2023-11-08] MEDS: KETOROLAC 15MG/ML VIAL (15MG/ML) IV ONE (14:59)
[2023-11-08] MEDS: 0.9%NACL 1000ML 1,000 ML IV SCH (16:24)
[2023-11-08] MEDS: LEVOFLOXACIN 500 MG/D5W 100 ML 100 ML IV SCH (16:24)
[2023-11-08] MEDS ORDERED: METRONIDAZOLE 500MG/100ML BAG 100 ML IVPB SCH (16:30)
[2023-11-08] MEDS ORDERED: ONDANSETRON 4MG INJ IVP PRN (16:30)
[2023-11-08 16:47] LABS: HEMOGLOBIN A1C 5.4 % (4.0-6.0)
[2023-11-08 17:03] LABS: THYROID STIMULATING HORMONE 1.31 uIU/mL (0.36-3.74)
[2023-11-08] MEDS: METRONIDAZOLE 500MG/100ML BAG 100 ML IVPB SCH (17:37)
[2023-11-08 18:00] VITALS: O2SAT 98
[2023-11-08 18:27] LABS: AMPHET/METH SCREEN,URINE NEGATIVE (NEGATIVE); BARBITURATE SCREEN, URINE NEGATIVE (NEGATIVE); BENZODIAZEPINES SCREEN,URINE NEGATIVE (NEGATIVE); CANNABINOID SCREEN,URINE POSITIVE (NEGATIVE); COCAINE SCREEN,URINE POSITIVE (NEGATIVE); OPIATE SCREEN,URINE NEGATIVE (NEGATIVE); PHENCYCLIDINE SCREEN,URINE NEGATIVE (NEGATIVE)
[2023-11-08 18:30] VITALS: BP 117/68; PULSE 82; RESP 16
[2023-11-08 19:20] VITALS: O2SAT 99
[2023-11-08 20:00] VITALS: BP 125/76; PULSE 86; RESP 18
[2023-11-08] MEDS: FAMOTIDINE 20MG TAB PO SCH (21:10)
[2023-11-08] MEDS: KETOROLAC 15MG/ML VIAL (15MG/ML) IV PRN (21:18)
[2023-11-09] VITALS (8 sets, daily range): BP systolic 109–126; BP diastolic 59–75; PULSE 70–89; RESP 17–20; O2SAT 98
[2023-11-09] MEDS: ALPRAZOLAM 0.5 MG TABLET PO PRN (01:38)
[2023-11-09] MEDS: ACETAMINOPHEN WITH CODEINE 1 TAB TAB PO PRN (04:49)
[2023-11-09 07:00] LABS: BASOPHILS # (AUTO) 0.05 K/uL (0.00-0.20); BASOPHILS % (AUTO) 0.5 % (0.0-5.0); EOSINOPHILS # (AUTO) 0.19 K/uL (0.00-0.70); EOSINOPHILS % (AUTO) 1.7 % (0.0-8.0); HEMATOCRIT 32.3 % (36-48); IMMATURE GRANULOCYTE ABSOLUTE 0.09 K/uL (0-1); LYMPHOCYTES # (AUTO) 1.3 K/uL (1.0-4.8); LYMPHOCYTES % (AUTO) 11.8 % (21.0-51.0); MEAN CORPUSCULAR HEMOGLOBIN 29.1 pg (27.0-33.0); MEAN CORPUSCULAR HGB CONC 31.6 g/dL (32.0-36.0); MONOCYTES # (AUTO) 0.9 K/uL (0.1-1.0); NEUTROPHILS # (AUTO) 8.5 K/uL (1.8-7.7); NEUTROPHILS % (AUTO) 77.2 % (40.0-77.0); PLATELET COUNT (AUTO) 403 K/uL (130-400); RED BLOOD CELL COUNT(AUTO) 3.51 MIL/uL (4.00-5.50); RED CELL DISTRIBUTION WIDTH 13.1 % (11.0-15.5); WHITE BLOOD COUNT (AUTO) 10.9 K/uL (4.8-10.8)
[2023-11-09 07:11] LABS: CREATININE 0.7 mg/dL (0.5-1.0); POTASSIUM 3.9 mmol/L (3.5-5.1)
[2023-11-09] MEDS ORDERED: ALBUTEROL 0.083% 2.5 MG/3 ML INH IH PRN (10:00)
[2023-11-09] MEDS: ENOXAPARIN SODIUM 30 MG/0.3 ML SQ SCH (11:12)
[2023-11-09] MEDS: SIMETHICONE 80 MG TAB.CHEW PO PRN (16:34)
[2023-11-10] VITALS (9 sets, daily range): BP systolic 105–182; BP diastolic 59–84; PULSE 80–94; RESP 16–18; O2SAT 94–100
[2023-11-10 08:00] LABS: BASOPHILS # (AUTO) 0.04 K/uL (0.00-0.20); BASOPHILS % (AUTO) 0.4 % (0.0-5.0); EOSINOPHILS # (AUTO) 0.21 K/uL (0.00-0.70); EOSINOPHILS % (AUTO) 2.2 % (0.0-8.0); HEMATOCRIT 27.2 % (36-48); IMMATURE GRANULOCYTE ABSOLUTE 0.05 K/uL (0-1); LYMPHOCYTES # (AUTO) 1.4 K/uL (1.0-4.8); LYMPHOCYTES % (AUTO) 14.4 % (21.0-51.0); MEAN CORPUSCULAR HEMOGLOBIN 29.8 pg (27.0-33.0); MEAN CORPUSCULAR HGB CONC 32.4 g/dL (32.0-36.0); MEAN CORPUSCULAR VOLUME 92.2 fL (79-99); MONOCYTES # (AUTO) 0.9 K/uL (0.1-1.0); MONOCYTES % (AUTO) 9.4 % (3.0-13.0); NEUTROPHILS % (AUTO) 73.1 % (40.0-77.0); PLATELET COUNT (AUTO) 386 K/uL (130-400); RED BLOOD CELL COUNT(AUTO) 2.95 MIL/uL (4.00-5.50); WHITE BLOOD COUNT (AUTO) 9.6 K/uL (4.8-10.8)
[2023-11-10 08:18] LABS: CREATININE 0.6 mg/dL (0.5-1.0); POTASSIUM 3.6 mmol/L (3.5-5.1)
[2023-11-11] VITALS (10 sets, daily range): BP systolic 116–133; BP diastolic 72–81; PULSE 78–99; RESP 18–21; O2SAT 97–100
[2023-11-11] MEDS ORDERED: METR-172 PO (17:57)
[2023-11-11] MEDS ORDERED: LEVO-70 PO (17:57)
[2023-11-12] VITALS (7 sets, daily range): BP systolic 121–136; BP diastolic 73–80; PULSE 79–88; RESP 16–18; O2SAT 98–99
[2023-11-12 04:14] LABS: BASOPHILS # (AUTO) 0.06 K/uL (0.00-0.20); BASOPHILS % (AUTO) 0.6 % (0.0-5.0); EOSINOPHILS # (AUTO) 0.28 K/uL (0.00-0.70); EOSINOPHILS % (AUTO) 2.8 % (0.0-8.0); HEMATOCRIT 31.4 % (36-48); IMMATURE GRANULOCYTE ABSOLUTE 0.07 K/uL (0-1); LYMPHOCYTES # (AUTO) 1.7 K/uL (1.0-4.8); LYMPHOCYTES % (AUTO) 16.6 % (21.0-51.0); MEAN CORPUSCULAR HGB CONC 32.2 g/dL (32.0-36.0); MEAN CORPUSCULAR VOLUME 90.2 fL (79-99); MONOCYTES % (AUTO) 10.1 % (3.0-13.0); NEUTROPHILS # (AUTO) 6.9 K/uL (1.8-7.7); NEUTROPHILS % (AUTO) 69.2 % (40.0-77.0); PLATELET COUNT (AUTO) 464 K/uL (130-400); RED BLOOD CELL COUNT(AUTO) 3.48 MIL/uL (4.00-5.50); RED CELL DISTRIBUTION WIDTH 12.5 % (11.0-15.5)
[2023-11-12 04:23] LABS: ALBUMIN 2.3 g/dL (3.5-5.0); BILIRUBIN,TOTAL 0.2 mg/dL (0.2-1.0); CREATININE 0.5 mg/dL (0.5-1.0); MAGNESIUM 2.1 mg/dL (1.80-2.40); POTASSIUM 4.4 mmol/L (3.5-5.1); TOTAL PROTEIN, SERUM 6.6 g/dL (6.0-8.3)
[2023-11-12] MEDS ORDERED: FLUCONAZOLE 100 MG TAB ONE (13:48)
[2023-11-12] MEDS ORDERED: FLUCONAZOLE 100 MG TAB PO ONE (14:00)
== END 2023-11-12 14:45 | disposition home or self-care (01) | DRG 864 ==
LOC: EDH 11:42 → EDHIP 16:07 → 4BH 18:05
PROVIDERS: ADMIT Internal Medicine; ATTEND Internal Medicine
DX: R50.82 Postprocedural fever (principal); Z68.41 Body mass index [BMI] 40.0-44.9, adult; R18.8 Other ascites; F14.10 Cocaine abuse, uncomplicated; B37.31 Acute candidiasis of vulva and vagina; D64.9 Anemia, unspecified; E03.9 Hypothyroidism, unspecified; E66.9 Obesity, unspecified; F12.10 Cannabis abuse, uncomplicated; F17.200 Nicotine dependence, unspecified, uncomplicated; J45.909 Unspecified asthma, uncomplicated; Z88.0 Allergy status to penicillin; Z91.199 Patient's noncompliance with other medical treatment and regimen due to unspecified reason; Z98.891 History of uterine scar from previous surgery; Z88.5 Allergy status to narcotic agent
CPT/HCPCS: 36415; 74177; 80048; 80053; 80305; 81001; 81025; 83036; 83690; 83735; 84145; 84443; 85025; 86140; 87040; 96365; 96375; 96376; G0378; J1650; J1885; J1956; J2405; J3490; J7030; Q9967

== ENCOUNTER 2023-11-28 19:53 | Emergency (ER) | payer BC ==
[~2023-11-28] VITALS: Ht 154.9 cm; Wt 102.1 kg
[~2023-11-28 19:53] MED LIST changes: -ALBU2.5V2 IH; -AZIT1PAC7 PO; -BROM118S48 PO; -IBUP-2070 PO; +LEVO-70 PO; -METH4TAB3 PO; +METR-172 PO
[2023-11-28 21:00] LABS: BASOPHILS # (AUTO) 0.05 K/uL (0.00-0.20); BASOPHILS % (AUTO) 0.7 % (0.0-5.0); EOSINOPHILS # (AUTO) 0.24 K/uL (0.00-0.70); EOSINOPHILS % (AUTO) 3.5 % (0.0-8.0); HEMATOCRIT 35.2 % (36-48); IMMATURE GRANULOCYTE ABSOLUTE 0.03 K/uL (0-1); LYMPHOCYTES # (AUTO) 1.7 K/uL (1.0-4.8); LYMPHOCYTES % (AUTO) 24.4 % (21.0-51.0); MEAN CORPUSCULAR HEMOGLOBIN 28.6 pg (27.0-33.0); MEAN CORPUSCULAR HGB CONC 31.5 g/dL (32.0-36.0); MEAN CORPUSCULAR VOLUME 90.7 fL (79-99); MONOCYTES # (AUTO) 0.5 K/uL (0.1-1.0); MONOCYTES % (AUTO) 6.8 % (3.0-13.0); NEUTROPHILS # (AUTO) 4.4 K/uL (1.8-7.7); NEUTROPHILS % (AUTO) 64.2 % (40.0-77.0); PLATELET COUNT (AUTO) 275 K/uL (130-400); RED BLOOD CELL COUNT(AUTO) 3.88 MIL/uL (4.00-5.50); WHITE BLOOD COUNT (AUTO) 6.8 K/uL (4.8-10.8)
[2023-11-28 21:02] LABS: APPEARANCE,URINE CLEAR (CLEAR); BILIRUBIN,URINE NEGATIVE (NEGATIVE); COLOR,URINE LIGHT-YELLOW (YELLOW); GLUCOSE, URINE (UA) NEGATIVE (NEGATIVE); HCG,QUALITATIVE URINE NEGATIVE (NEGATIVE); KETONES,URINE NEGATIVE (NEGATIVE); LEUKOCYTE ESTERASE ,URINE NEGATIVE Leu/uL (NEGATIVE); NITRATE,URINE NEGATIVE (NEGATIVE); PROTEIN,URINE NEGATIVE (NEGATIVE); UROBILINOGEN,URINE 0.2 mg/dL (0.2-1.0)
[2023-11-28 21:05] LABS: ADD UA MICROSCOPIC YES
[2023-11-28 21:08] LABS: CREATININE 0.6 mg/dL (0.5-1.0); POTASSIUM 4.5 mmol/L (3.5-5.1)
[2023-11-28 21:15] LABS: BACTERIA,URINE FEW /HPF (None Seen); OTHER CASTS, URINE 1 /LPF (None Seen); RBC,URINE 0-1 /HPF (0-1); SQUAMOUS EPITHELIAL CELL,UR MOD /HPF (0-2)
[2023-11-28 21:16] LABS: BILIRUBIN,TOTAL 0.2 mg/dL (0.2-1.0); TOTAL PROTEIN, SERUM 6.9 g/dL (6.0-8.3)
[2023-11-28 22:44] VITALS: BP 115/80; PULSE 76; RESP 18; O2SAT 99
== END 2023-11-28 22:45 | disposition home or self-care (01) ==
LOC: EDH 19:53
DX: Z48.00 Encounter for change or removal of nonsurgical wound dressing (principal); J45.909 Unspecified asthma, uncomplicated; Z79.899 Other long term (current) drug therapy; Z98.890 Other specified postprocedural states; Z88.0 Allergy status to penicillin; Z88.8 Allergy status to other drugs, medicaments and biological substances
CPT/HCPCS: 36415; 80053; 81001; 81025; 85025

== ENCOUNTER 2024-02-25 00:19 | Emergency (ER) | payer BC, OTHER ==
[~2024-02-25] VITALS: Ht 154.9 cm; Wt 91.6 kg
[2024-02-25 00:35] LABS: APPEARANCE,URINE CLOUDY (CLEAR); BILIRUBIN,URINE NEGATIVE (NEGATIVE); COLOR,URINE LIGHT-YELLOW (YELLOW); GLUCOSE, URINE (UA) NEGATIVE (NEGATIVE); KETONES,URINE NEGATIVE (NEGATIVE); LEUKOCYTE ESTERASE ,URINE 500 Leu/uL (NEGATIVE); NITRATE,URINE NEGATIVE (NEGATIVE); OCCULT BLOOD,URINE MODERATE (NEGATIVE); PH,URINE 5.5 (5.0-8.0); PROTEIN,URINE 10 mg/dL (NEGATIVE); UROBILINOGEN,URINE 0.2 mg/dL (0.2-1.0)
[2024-02-25 00:45] LABS: ADD UA MICROSCOPIC YES
[2024-02-25 00:46] LABS: BACTERIA,URINE RARE /HPF (None Seen); MUCUS,URINE RARE LPF (None Seen); SQUAMOUS EPITHELIAL CELL,UR MOD /HPF (0-2); WBC,URINE >100 /HPF (0-1)
[2024-02-25] MEDS ORDERED: morPHINE 4 MG SYG IVP ONE (01:00)
[2024-02-25 01:10] LABS: BASOPHILS # (AUTO) 0.05 K/uL (0.00-0.20); BASOPHILS % (AUTO) 0.6 % (0.0-5.0); EOSINOPHILS # (AUTO) 0.05 K/uL (0.00-0.70); EOSINOPHILS % (AUTO) 0.6 % (0.0-8.0); HEMATOCRIT 43.7 % (36-48); IMMATURE GRANULOCYTE ABSOLUTE 0.03 K/uL (0-1); LYMPHOCYTES # (AUTO) 0.9 K/uL (1.0-4.8); LYMPHOCYTES % (AUTO) 10.2 % (21.0-51.0); MEAN CORPUSCULAR HEMOGLOBIN 28.5 pg (27.0-33.0); MEAN CORPUSCULAR HGB CONC 32.7 g/dL (32.0-36.0); MEAN CORPUSCULAR VOLUME 87.1 fL (79-99); MONOCYTES # (AUTO) 0.8 K/uL (0.1-1.0); NEUTROPHILS # (AUTO) 6.6 K/uL (1.8-7.7); NEUTROPHILS % (AUTO) 79.2 % (40.0-77.0); PLATELET COUNT (AUTO) 256 K/uL (130-400); RED BLOOD CELL COUNT(AUTO) 5.02 MIL/uL (4.00-5.50); RED CELL DISTRIBUTION WIDTH 13.2 % (11.0-15.5); WHITE BLOOD COUNT (AUTO) 8.3 K/uL (4.8-10.8)
[2024-02-25] MEDS: LACTATED RINGERS 1000ML 1,000 ML IV ONE (01:11)
[2024-02-25] MEDS: cefTRIAXone 1G VIAL IVPB ONE (01:12)
[2024-02-25 01:23] LABS: CREATININE 0.7 mg/dL (0.5-1.0); POTASSIUM 3.7 mmol/L (3.5-5.1)
[2024-02-25 01:40] LABS: RAPID GROUP A STREP negative (NEGATIVE)
[2024-02-25 01:43] LABS: SARS-CoV-2, RNA, NAAT NEGATIVE SARS CoV-2 (NEGATIVE)
[2024-02-25 01:50] LABS: INFLUENZA TYPE A NEGATIVE FOR TYPE A (NEGATIVE); INFLUENZA TYPE B NEGATIVE FOR TYPE B (NEGATIVE)
[2024-02-25] MEDS: ketOROlac 15MG/ML VIAL (15MG/ML) IV ONE (02:25)
[2024-02-25] MEDS: 0.9%NACL 1000ML 1,000 ML IV SCH (02:54)
[2024-02-25 03:40] VITALS: BP 145/65; PULSE 88; RESP 18; TEMP 99.5; O2SAT 99
[2024-02-25] MEDS ORDERED: SULF1TAB42 PO (03:40)
== END 2024-02-25 03:46 | disposition home or self-care (01) ==
LOC: EDH 00:19
DX: N39.0 Urinary tract infection, site not specified (principal); E11.9 Type 2 diabetes mellitus without complications; Z20.822 Contact with and (suspected) exposure to COVID-19; Z88.0 Allergy status to penicillin; Z88.5 Allergy status to narcotic agent; Z98.890 Other specified postprocedural states
CPT/HCPCS: 99285; 74176; 96365; 71045; 87635; 96361; 96375; 84484; 80048; 83690; 85025; 87086 ×2; 87186; 87880; 87804 ×2; 81001; 81025; 36415; J7120; J7030; J0696; J1885

== ENCOUNTER 2024-03-06 02:24 | Emergency (ER) | payer OTHER ==
[~2024-03-06] VITALS: Ht 154.9 cm; Wt 102.1 kg
[~2024-03-06 02:24] MED LIST changes: +SULF1TAB42 PO
[2024-03-06 02:26] VITALS: TEMP 100.3
--- NOTE | 2024-03-06 02:29 | NUR ---
UA CUP PROVIDED
--- NOTE | 2024-03-06 02:30 | NUR ---
UA COLLECTED AND SENT FOR ANY FUTURE ORDERS
--- NOTE | 2024-03-06 02:32 | NUR ---
REPORT TO RUTHANN MYERS
[2024-03-06 02:56] LABS: APPEARANCE,URINE CLEAR (CLEAR); BILIRUBIN,URINE NEGATIVE (NEGATIVE); COLOR,URINE LIGHT-YELLOW (YELLOW); GLUCOSE, URINE (UA) NEGATIVE (NEGATIVE); KETONES,URINE NEGATIVE (NEGATIVE); LEUKOCYTE ESTERASE ,URINE NEGATIVE Leu/uL (NEGATIVE); NITRATE,URINE NEGATIVE (NEGATIVE); OCCULT BLOOD,URINE MODERATE (NEGATIVE); PROTEIN,URINE NEGATIVE (NEGATIVE); UROBILINOGEN,URINE 0.2 mg/dL (0.2-1.0)
[2024-03-06 03:11] LABS: ADD UA MICROSCOPIC YES; BACTERIA,URINE None Seen /HPF (None Seen); RBC,URINE 51-100 /HPF (0-1); SQUAMOUS EPITHELIAL CELL,UR Few /HPF (0-2); WBC,URINE 0-1 /HPF (0-1)
[2024-03-06 03:32] LABS: BASOPHILS # (AUTO) 0.03 K/uL (0.00-0.20); BASOPHILS % (AUTO) 0.3 % (0.0-5.0); EOSINOPHILS # (AUTO) 0.03 K/uL (0.00-0.70); EOSINOPHILS % (AUTO) 0.3 % (0.0-8.0); HEMATOCRIT 40.3 % (36-48); IMMATURE GRANULOCYTE ABSOLUTE 0.04 K/uL (0-1); LYMPHOCYTES # (AUTO) 0.4 K/uL (1.0-4.8); LYMPHOCYTES % (AUTO) 4.5 % (21.0-51.0); MEAN CORPUSCULAR HEMOGLOBIN 28.8 pg (27.0-33.0); MEAN CORPUSCULAR VOLUME 87.2 fL (79-99); MONOCYTES # (AUTO) 0.5 K/uL (0.1-1.0); MONOCYTES % (AUTO) 5.3 % (3.0-13.0); NEUTROPHILS # (AUTO) 8.8 K/uL (1.8-7.7); NEUTROPHILS % (AUTO) 89.2 % (40.0-77.0); PLATELET COUNT (AUTO) 300 K/uL (130-400); RED BLOOD CELL COUNT(AUTO) 4.62 MIL/uL (4.00-5.50); WHITE BLOOD COUNT (AUTO) 9.9 K/uL (4.8-10.8)
[2024-03-06] MEDS: [UNRECOGNIZED DRUG - OTHER] IV ONE (03:34)
[2024-03-06] MEDS: levoFLOXacin 500 MG/D5W 100 ML 100 ML IV STA (03:35)
[2024-03-06] MEDS: acetaMINOPHEN 500 MG TABLET PO ONE (03:35)
[2024-03-06 03:45] LABS: CREATININE 0.8 mg/dL (0.5-1.0); POTASSIUM 3.9 mmol/L (3.5-5.1)
--- NOTE | 2024-03-06 03:52 | ERN ---
General Chief Complaint: Multiple Complaints Stated Complaint: PAINFUL UA AND VOMITING Time Seen by MD: 02:31 Source: patient History of Present Illness Initial Comments Patient is a 48-year-old female coming in to be evaluated for fever and chills. Patient states he was diagnosed with a urinary tract infection she finished her treatment but states she has not followed up with her PCP and is here for evaluation. Allergies: Coded Allergies: Penicillins (Verified Allergy, Unknown, 02/28/22) morphine (Verified Allergy, Unknown, 11/08/23) Home Meds Active Scripts Sulfamethoxazole/Trimethoprim (Bactrim Ds Tablet) 800 Mg-160 Mg Tablet, 1 TAB PO BID for 7 Days, #14 TAB Prov:IRENE HICKS MD 02/25/24 Metronidazole (Metronidazole) 500 Mg Tablet, 500 MG PO q8hrs for 7 Days, #21 TAB Prov:JC CONCEPCION NP 11/11/23 Levofloxacin (Levofloxacin) 500 Mg Tablet, 500 MG PO DAILY for 7 Days, #7 TAB Prov:JC CONCEPCION NP 11/11/23 Past Medical History Past Medical History: Diabetes-Type II, UTI Past Surgical History: Hysterectomy, Other Surgical History Other: HERNIA REPAIR Family History Family History: Negative Social History Social History: Negative, Other Female( History) LMP: Mar 02, 2024 ROS Dictation CONSTITUTIONAL: No chills, no fever, no weakness, no diaphoresis, no malaise. HEAD/FACE: No signs of trauma. EENT: No eye pain, no blurred vision, no tearing, no double vision, no ear pain, no ear discharge, no nose pain, no nasal congestion, no throat pain, no throat swelling, no mouth pain. RESPIRATORY: No cough, no orthopnea, no SOB, no stridor, no wheezing. CARDIOVASCULAR: No chest pain, no edema, no palpitations, no syncope. GASTROINTESTINAL/ABDOMINAL: No abdominal pain, no constipation, no diarrhea, no nausea, no vomiting. GENITOURINARY: No abnormal discharge, no dysuria, no frequent urination, no hematuria. No complaints of pain in the genitals. MUSCULOSKELETAL: No back pain, no gout, no joint pain, no joint swelling, no muscle pain, no muscle stiffness, no neck pain. INTEGUMENTARY: No change in color, no change in hair/nails, no dryness, no lesion, no lumps, no rash. NEUROLOGICAL/PSYCH: No anxiety, not depressed, no emotional problem, no headache, no numbness, no pre-existing deficit, no history of seizures, no tremors, no weakness. HEMATOLOGIC/LYMPHATIC: Not anemic, no history of blood clots, no apparent bleeding, no bruising, glands not swollen. All Systems Negative, Except as Noted. Physical Exam Physical Exam Dictation VITAL SIGNS: Reviewed. GENERAL APPEARANCE: Alert, oriented x3, no acute distress, obese. HEAD AND FACE: Non-traumatic. EYES: PERRL, pink conjunctivas, eyelid no trauma, anterior chamber clear. EARS: Pinnas intact and no signs of trauma or erythema. Ear canals clear and no discharge. TMs no erythema. NOSE: No discharge, no bleeding. OROPHARYNX: Mouth normal, teeth no caries, tongue pink. Pharynx clear, no erythema. Tonsils no exudates, no abscesses noted. Mucous membrane moist. NECK: Supple, non-tender, no thyromegaly, no masses, no JVD, no bruits. BREAST: Deferred. CHEST: No tenderness, no crepitus, no paradoxical movement, no retractions. LUNGS: Clear, well-ventilated, symmetric, no rales, no wheezing, no rhonchi, no stridor, good breath sounds bilaterally. HEART: Regular rate, regular rhythm, no murmur, no gallops. VASCULAR: No peripheral edema. ABDOMEN: Soft, positive bowel sounds, nondistended, no guarding, nontender, no rebound, no masses no hepatomegaly, no splenomegaly, no Recinos's sign, no hernias. RECTAL: Deferred. GENITAL: Deferred. NEUROLOGICAL: Normal speech, gross motor function intact, gross sensory function intact. MUSCULOSKELETAL: Neck nontender, full range of motion, back nontender, full r gunnar of motion. EXTREMITIES: Nontender, full range of motion. SKIN: Color pink, dry, no turgor, no rash, no lacerations, no abrasions, no contusions. LYMPHATICS: Deferred. Results Laboratory and Microbiology Lab and Micro Result Laboratory Tests Test 03/06/24 02:30 03/06/24 03:15 Urine Color LIGHT-YELLOW (YELLOW) Urine Appearance CLEAR (CLEAR) Urine pH 7.0 (5.0-8.0) Urine Specific [place] 1.015 (1.001-1.031) Urine Protein NEGATIVE mg/dL (NEGATIVE) Urine Glucose (UA) NEGATIVE mg/dL (NEGATIVE) Urine Ketones NEGATIVE mg/dL (NEGATIVE) Urine Occult Blood MODERATE (NEGATIVE) H Urine Nitrate NEGATIVE (NEGATIVE) Urine Bilirubin NEGATIVE mg/dL (NEGATIVE) Urine Urobilinogen 0.2 mg/dL (0.2-1.0) Urine Leukocyte Esterase NEGATIVE Gato/uL Urine RBC 51-100 /HPF (0-1) H Urine WBC 0-1 /HPF (0-1) Urine Squamous Epithelial Cells Few /HPF (0-2) Urine Bacteria None Seen /HPF (None Seen) White Blood Count 9.9 K/uL (4.8-10.8) Red Blood Count 4.62 MIL/uL (4.00-5.50) Hemoglobin 13.3 g/dL (12.0-16.0) Hematocrit 40.3 % (36-48) Mean Corpuscular Volume 87.2 fL (79-99) Mean Corpuscular Hemoglobin 28.8 pg (27.0-33.0) Mean Corpuscular Hemoglobin Concent 33.0 g/dL (32.0-36.0) Red Cell Distribution Width 13.0 % (11.0-15.5) Platelet Count 300 K/uL (130-400) Mean Platelet Volume 10.5 fL (7.5-10.5) Immature Granulocyte % (Auto) 0.4 % (0-1) Neutrophils (%) (Auto) 89.2 % (40.0-77.0) H Lymphocytes (%) (Auto) 4.5 % (21.0-51.0) L Monocytes (%) (Auto) 5.3 % (3.0-13.0) Eosinophils (%) (Auto) 0.3 % (0.0-8.0) Basophils (%) (Auto) 0.3 % (0.0-5.0) Neutrophils # (Auto) 8.8 K/uL (1.8-7.7) H Lymphocytes # (Auto) 0.4 K/uL (1.0-4.8) L Monocytes # (Auto) 0.5 K/uL (0.1-1.0) Eosinophils # (Auto) 0.03 K/uL (0.00-0.70) Basophils # (Auto) 0.03 K/uL (0.00-0.20) Absolute Immature Granulocyte (auto 0.04 K/uL (0-1) Nucleated Red Blood Cells 0.0 % (0.0-0.19) White Cell Morphology Comment See comments Sodium Level 134 mmol/L (136-145) L Potassium Level 3.9 mmol/L (3.5-5.1) Chloride Level 98 mmol/L (101-111) L Carbon Dioxide Level 30 mmol/L (21-32) Blood Urea Nitrogen 11 mg/dL (7-18) Creatinine 0.8 mg/dL (0.5-1.0) Glomerular Filtration Rate Calc 92 mL/min (>90) Random Glucose 114 mg/dL (70-105) H Lactic Acid Level 1.5 mmol/L (0.8-2.5) Total Calcium 9.4 mg/dL (8.5-10.1) Total Creatine Kinase 60 U/L (21-232) # Troponin I High Sensitivity 6 ng/L (4-50) Labs Reviewed?: Yes MDM MDM: DIFFERENTIAL DIAGNOSIS: DYSURIA, UTI, SEPSIS RATIONALE: TESTS CONSIDERED AND ORDERED SECONDARY TO SHARED DECISION MAKING INCLUDE: PREVIOUS OUTSIDE RECORDS REVIEWED: OLD ER VISITS. RISK OF COMPLICATION AND/OR MORBIDITY OR MORTALITY OF PATIENT MANAGEMENT: NONE MEDICATIONS-PER MEDICATION RECONCILIATION NEED FOR HOSPITALIZATION: PATIENT DOES NOT MEET CRITERIA FOR HOSPITALIZATION. NEED FOR EMERGENCY MAJOR/MINOR SURGERY: NO THERE ARE NO SOCIAL CONCERNS WITH THIS PATIENT. PRESCRIPTION DRUG MANAGEMENT PRESCRIPTIONS WILL INCLUDE SYMPTOMATIC CARE PATIENT'S PRIOR EXTERNAL MEDICAL RECORDS FROM OTHER ER VISITS WERE REVIEWED BY ME INDICATED. PRIOR TESTING AND RESULTS FROM PREVIOUS VISITS WERE REVIEWED. PRIOR TESTS WERE TAKEN INTO ACCOUNT WITH MEDICAL DECISION MAKING AND RESOURCE UTILIZATION, INDEPENDENT HISTORIAN/HISTORIANS WERE USED TO OBTAIN COMPLETE [facility] HISTORY. I INDEPENDENTLY INTERPRETED THE TEST THAT WERE PERFORMED, RESULTS WERE REVIEWED BY ME AND CONSIDERED FINDINGS ON RADIOLOGY IF ORDERED. MEDICAL MANAGEMENT AND EXAMINATION INTERPRETATION DISCUSSIONS WERE HAD BY ME WITH OTHER QUALIFIED HEALTHCARE PROFESSIONALS INDICATED FOR THE PATIENT'S CARE. PATIENT IS A 48-YEAR-OLD FEMALE COMING IN TO BE EVALUATED FOR GENERALIZED BODY WEAKNESS CHILLS AND DYSURIA. PATIENT STATES THAT SHE WAS RECENTLY DIAGNOSED WITH A URINARY TRACT INFECTION AND FINISHED HER ANTIBIOTICS BUT DID NOT FOLLOW UP WITH HER PCP DUE TO INSURANCE REASONS. LABORATORY WORKUP NEGATIVE FOR ACUTE FINDINGS. PATIENT WAS HYDRATED WITH IV FLUIDS AND FELT MUCH BETTER. PATIENT WILL BE DISCHARGED WITH A DIAGNOSIS OF DYSURIA WITH DEHYDRATION. ED Course Orders Procedure Category Date Status Time Cbc With Differential LAB 03/06/24 Complete 02:39 Blood Cult JOAO 03/06/24 In Process 02:39 Urinalysis Profile LAB 03/06/24 Complete 02:39 Culture Urine JOAO 03/06/24 In Process 02:39 0.9%Nacl 1000ml (Ns PHA 03/06/24 In Process 1000ml) 03:00 Creatine Kinase, Total LAB 03/06/24 Complete 02:39 Troponin I High LAB 03/06/24 Complete Sensitivity 02:39 Lactic Acid LAB 03/06/24 Complete 02:39 Basic Metabolic Panel LAB 03/06/24 Complete 02:39 Levofloxacin 500 PHA 03/06/24 Complete Mg/D5w 100 Ml 02:39 Acetaminophen 500mg PHA 03/06/24 Complete Tab (Tylenol 500mg T 03:00 Current Medications Medications (Trade) Dose Ordered Sig/Bernardo Route PRN Reason Start Time Stop Time Status Last Admin Dose Admin Acetaminophen (TYLenol 500MG TAB) 1,000 mg ONCE ONCE PO 03/06/24 03:00 03/06/24 03:01 DC 03/06/24 03:35 Levofloxacin/ Dextrose 100 ml @ 100 mls/hr Q24H STAT IV 03/06/24 02:39 03/06/24 03:38 DC 03/06/24 03:35 Sodium Chloride 3,063 ml @ 1,021 mls/hr ONCE ONCE IV 03/06/24 03:00 03/06/24 05:59 03/06/24 03:34 Vital Signs Date Time Temp Pulse Resp B/P (MAP) Pulse Ox O2 Delivery O2 Flow Rate FiO2 03/06/24 03:24 92 18 140/81 99 Room Air* 0 21 03/06/24 02:26 100.2 103 20 148/93 99 Room Air DX & DISP Disposition: Discharge Departure Impression: Primary Impression: Dehydration Additional Impression: Dysuria Condition: Stable Additional Instructions: DISCHARGE HOME. FOLLOW-UP WITH PRIMARY CARE PROVIDER IN 1 TO 2 DAYS. TAKE MEDICATIONS DIRECTED HERE IN THE EMERGENCY ROOM. OKAY TO CONTINUE HOME MEDICATIONS UNLESS OTHERWISE DISCUSSED DURING YOUR VISIT IN THE EMERGENCY ROOM TODAY. RETURN TO YOUR NEAREST EMERGENCY ROOM IF SYMPTOMS WORSEN OR IF THERE IS NO IMPROVEMENT. CALL 911 IF YOU NEED IMMEDIATE ASSISTANCE. TAKE TYLENOL OR MOTRIN [id number] NEEDED AND IF NO CONTRAINDICATIONS ARE PRESENT. INCREASE ORAL HYDRATION. A WOUND CULTURE OR URINE CULTURE WAS ORDERED HERE IN THE EMERGENCY ROOM DEPARTMENT PLEASE FOLLOW-UP WITH PRIMARY CARE PROVIDER AND ADVISE THEM TO GET REPEAT PORTS FROM OUR FACILITY. Referrals: NONE (PCP) Time of Disposition: 04:08 TARYN MCNAIR MD Mar 06, 2024 03:52
[2024-03-06 04:55] VITALS: BP 127/76; PULSE 85; RESP 16; O2SAT 99
[2024-03-06 05:03] VITALS: TEMP 98.4
== END 2024-03-06 05:03 | disposition home or self-care (01) ==
LOC: EDH 02:24
DX: E86.0 Dehydration (principal); R30.0 Dysuria; E11.9 Type 2 diabetes mellitus without complications; Z79.899 Other long term (current) drug therapy; Z87.440 Personal history of urinary (tract) infections; Z88.0 Allergy status to penicillin; Z88.5 Allergy status to narcotic agent; Z90.710 Acquired absence of both cervix and uterus; Z98.890 Other specified postprocedural states
CPT/HCPCS: 99284; 96365; 82550; 84484; 80048; 85025; 87040; 87086; 83605; 81001; 36415; J1956; J7030

== ENCOUNTER 2024-07-02 19:53 | Emergency (ER) | payer OTHER ==
[~2024-07-02] VITALS: Ht 154.9 cm; Wt 91.2 kg
--- NOTE | 2024-07-02 19:56 | NUR ---
UA CUP PROVIDED
--- NOTE | 2024-07-02 20:14 | ERN ---
ED Note History of Present Illness Stated Complaint: PELVIC PAIN Chief Complaint: Pelvic Pain Time Seen by MD: 19:57 Dictation: PATIENT IS A 49-YEAR-OLD FEMALE HERE COMPLAINING OF LEFT LOWER PELVIC PAIN AND UNKNOWN TUBAL OVARIAN ABSCESS. SHE HAD BEEN TO ADMITTED TO [facility] [place] AND SIGNED OUT AGAINST MEDICAL ADVICE ON 07/01/2024 BECAUSE SHE HAD TO GO HOME AND MAKE SURE THAT HER CHILDREN HAD FOOD. SHE STATES SHE IS NOW BACK AND SAID THAT HER REFRIGERATOR HAS BEEN STOPPED AND WOULD LIKE TO RESUME TREATMENT. NO FEVER NO CHILLS NO NAUSEA VOMITING. Allergies: Coded Allergies: Penicillins (Verified Allergy, Unknown, 02/28/22) morphine (Verified Allergy, Unknown, 11/08/23) Home Meds Active Scripts Nystatin (Mycostatin Cream) 100,000 Unit/Gram Crm, 1 APPL TP BID for 7 Days, #30 GM 0 Refills apply to affected area(s) Prov:JJ GASTELUM MD 07/02/24 Ondansetron (Ondansetron Odt) 4 Mg Tab.rapdis, 4 MG PO Q6HPRN PRN for nausea, #16 TAB 0 Refills Prov:JJ GASTELUM MD 07/02/24 Clindamycin HCl (Clindamycin HCl) 300 Mg Capsule, 1 CAP PO QID for 10 Days, #40 CAP 0 Refills Prov:JJ GASTELUM MD 07/02/24 Levofloxacin (Levofloxacin) 750 Mg Tablet, 1 TAB PO DAILY for 10 Days, #10 TAB 0 Refills Prov:JJ GASTELUM MD 07/02/24 Discontinued Scripts Sulfamethoxazole/Trimethoprim (Bactrim Ds Tablet) 800 Mg-160 Mg Tablet, 1 TAB PO BID for 7 Days, #14 TAB Prov:IRENE HICKS MD 02/25/24 Metronidazole (Metronidazole) 500 Mg Tablet, 500 MG PO q8hrs for 7 Days, #21 TAB Prov:JC CONCEPCION NP 11/11/23 Levofloxacin (Levofloxacin) 500 Mg Tablet, 500 MG PO DAILY for 7 Days, #7 TAB Prov:JC CONCEPCION NP 11/11/23 Past Medical History Past Medical History: Diabetes-Type II, UTI Surgical History: Hysterectomy, Other Surgical History Other: HERNIA REPAIR Family History: Negative Social History: Negative, Other History: Not Applicable LMP: Jun 01, 2024 RN Note Reviewed/Agreed w/PFSH: Yes Review of System Dictation CONSTITUTIONAL: NEGATIVE EXCEPT FOR HPI HEAD/FACE: NEGATIVE EXCEPT FOR HPI EENT: NEGATIVE EXCEPT FOR HPI RESPIRATORY: NEGATIVE EXCEPT FOR HPI GASTROINTESTINAL/ABDOMINAL: NEGATIVE EXCEPT FOR HPI LEFT PELVIC PAIN GENITOURINARY: NEGATIVE EXCEPT FOR HPI MUSCULOSKELETAL: NEGATIVE EXCEPT FOR HPI INTEGUMENTARY: NEGATIVE EXCEPT FOR HPI NEUROLOGICAL/PSYCH: NEGATIVE EXCEPT FOR HPI HEMATOLOGIC/LYMPHATIC: NEGATIVE EXCEPT FOR HPI ALL SYSTEMS NEGATIVE, EXCEPT NOTED ABOVE. 13 POINT REVIEW OF SYSTEMS ASSESSED AND ALL NEGATIVE EXCEPT FOR ABOVE. Initial Vital Sign VS Vital Signs Date Time Temp Pulse Resp B/P (MAP) Pulse Ox O2 Delivery O2 Flow Rate FiO2 07/02/24 19:54 98.2 85 16 141/88 99 Room Air 07/02/24 20:20 0 21 Physical Exam Dictation VITAL SIGNS REVIEWED GENERAL APPEARANCE: ALERT, ORIENTED X 3, MILD ACUTE DISTRESS, WELL DEVELOPED, NOURISHED. HEAD AND FACE: NON-TRAUMATIC. EYES: PERRL, PINK CONJUNCTIVAS, EYELID NO TRAUMA, ANTERIOR CHAMBER WITH ARCUS SENILIS. EARS: PINNAS INTACT AND NO SIGNS OF TRAUMA OR ERYTHEMA EAR CANALS CLEAR AND NO DISCHARGE TM NO ERYTHEMA NOSE: NO DISCHARGE, NO BLEEDING. OROPHARYNX: MOUTH NORMAL, TONGUE PINK, PHARYNX CLEAR,NO ERYTHEMA, TONSILS NO EXUDATES, NO ABSCESSES NOTED, MUCOUS MEMBRANE MOIST NECK: SUPPLE, NON-TENDER, NO THYROMEGALY, NO MASSES, NO JVD, NO BRUITS BREAST:DEFERRED CHEST:NO TENDERNESS, NO CREPITUS, NO PARADOXICAL MOVEMENT, NO RETRACTIONS LUNGS:CLEAR, WELL-VENTILATED, SYMMETRIC, NO RALES, NO WHEEZING, NO RHONCHI, NO STRIDOR, GOOD BREATH SOUNDS BILATERALLY HEART: REGULAR RATE, REGULAR RHYTHM, NO MURMUR, NO GALLOPS VASCULAR: NO PERIPHERAL EDEMA, ABDOMEN: SOFT, POSITIVE BOWEL SOUNDS, NONDISTENDED, NO GUARDING, MILD LEFT LOWER PELVIC ABDOMINAL PAIN. RECTAL: DEFERRED GENITAL: DEFERRED NEUROLOGICAL: NORMAL SPEECH, MOTOR FUNCTION INTACT, SENSORY FUNCTION INTACT MUSCULOSKELETAL: NECK NONTENDER, FULL RANGE OF MOTION, BACK NONTENDER, FULL RANGE OF MOTION, EXTREMITIES: NONTENDER, FULL RANGE OF MOTION SKIN: COLOR PINK, DRY, NO TURGOR, NO RASH, NO LACERATIONS, NO ABRASIONS, NO CONTUSIONS. LYMPHATIC: DEFERRED Results (Laboratory/Radiology) Laboratory/Radiology Laboratory Tests Test 07/02/24 19:55 07/02/24 20:37 Urine Color YELLOW (YELLOW) Urine Appearance CLOUDY (CLEAR) H Urine pH 5.5 (5.0-8.0) Urine Specific [place] 1.023 (1.001-1.031) Urine Protein 20 mg/dL (NEGATIVE) H Urine Glucose (UA) NEGATIVE mg/dL (NEGATIVE) Urine Ketones NEGATIVE mg/dL (NEGATIVE) Urine Occult Blood MODERATE (NEGATIVE) H Urine Nitrate NEGATIVE (NEGATIVE) Urine Bilirubin NEGATIVE mg/dL (NEGATIVE) Urine Urobilinogen 0.2 mg/dL (0.2-1.0) Urine Leukocyte Esterase 500 Gato/uL (NEGATIVE) H Urine RBC 6-10 /HPF (0-1) H Urine WBC 11-25 /HPF (0-1) H Urine Squamous Epithelial Cells MANY /HPF (0-2) Urine Bacteria RARE /HPF (None Seen) White Blood Count 6.5 K/uL (4.8-10.8) Red Blood Count 4.17 MIL/uL (4.00-5.50) Hemoglobin 12.1 g/dL (12.0-16.0) Hematocrit 37.4 % (36-48) Mean Corpuscular Volume 89.7 fL (79-99) Mean Corpuscular Hemoglobin 29.0 pg (27.0-33.0) Mean Corpuscular Hemoglobin Concent 32.4 g/dL (32.0-36.0) Red Cell Distribution Width 12.7 % (11.0-15.5) Platelet Count 289 K/uL (130-400) # Mean Platelet Volume 10.7 fL (7.5-10.5) H Immature Granulocyte % (Auto) 0.5 % (0-1) Neutrophils (%) (Auto) 70.7 % (40.0-77.0) Lymphocytes (%) (Auto) 20.9 % (21.0-51.0) L Monocytes (%) (Auto) 6.5 % (3.0-13.0) Eosinophils (%) (Auto) 0.8 % (0.0-8.0) Basophils (%) (Auto) 0.6 % (0.0-5.0) Neutrophils # (Auto) 4.6 K/uL (1.8-7.7) Lymphocytes # (Auto) 1.4 K/uL (1.0-4.8) Monocytes # (Auto) 0.4 K/uL (0.1-1.0) Eosinophils # (Auto) 0.05 K/uL (0.00-0.70) Basophils # (Auto) 0.04 K/uL (0.00-0.20) Absolute Immature Granulocyte (auto 0.03 K/uL (0-1) Nucleated Red Blood Cells 0.0 % (0.0-0.19) Sodium Level 141 mmol/L (136-145) Potassium Level 3.7 mmol/L (3.5-5.1) Chloride Level 106 mmol/L (101-111) Carbon Dioxide Level 30 mmol/L (21-32) Blood Urea Nitrogen 8 mg/dL (7-18) Creatinine 0.6 mg/dL (0.5-1.0) Glomerular Filtration Rate Calc 111 mL/min (>90) Random Glucose 141 mg/dL (70-105) H Total Calcium 8.7 mg/dL (8.5-10.1) Labs Reviewed?: Yes CT Scan Comment: PATIENT: OSCAR MI MR#: [id number] : 1975 SEX: F AGE: 49 LOCATION: [facility] ORDER 04 STATUS: [facility] REPORT#: [id number] SERVICE 03 REASON: LEFT ABDOMINAL PELVIC PAIN HISTORY OF TUBAL OVARIAN ABSCESS ORDERING PHYSICIAN: ADAN NAVARRETE NP PROCEDURE: ABD PEL W - CT ABDOMEN/PELVIS W/CONTRAST CT ABDOMEN/PELVIS W/CONTRAST HISTORY: Left abdominal pelvic pain COMPARISON: None TECHNIQUE: Multiple sequential axial images of the abdomen and pelvis were obtained from the dome of the diaphragm through symphysis pubis. Patient was given 75 cc of Omnipaque through intravenous route. Oral contrast was not given. FINDINGS: No pleural effusion is seen bilaterally. There is no evidence of parenchymal disease or pulmonary nodule of the visualized lower lungs. Degenerative changes of the thoracolumbar spine are present. The heart is not enlarged. Gastric distention is seen. Liver measures 18 cm. The liver, spleen, adrenal glands and pancreas are unremarkable. There is no evidence of hydronephrosis bilaterally. No evidence of renal stone is seen. Fecal material is seen in the colon. There are normal size retroperitoneal and mesenteric lymph nodes. No ascites is seen. Appendix is not well seen limiting evaluation. Complex cystic structure is seen in the left ovary measures 3.3 cm may be related to tubo-ovarian abscess. Scarring is seen in the left anterior pelvic wall. Pelvic sidewalls are symmetric bilaterally. Bladder is poorly distended. IMPRESSION: 1. Complex cystic structure is seen in the left ovary measures 3.3 cm may be related to tubo-ovarian abscess. Scarring is seen in the left anterior pelvic wall. CT was performed with one or more following dose reduction techniques: automated exposure control, adjustment of the mA and kv according to patient's size, or use of a iterative reconstruction technique. DICTATED BY: CATHY TAYLOR MD DATE: 07/02/242227 ELECTRONICALLY SIGNED BY: CATHY TAYLOR MD DATE: 07/02/242232 ED Course ED Course Orders Procedure Category Date Status Time Cbc With Differential LAB 07/02/24 Complete 20:14 Urinalysis Profile LAB 07/02/24 Complete 20:14 0.9%Nacl 1000ml (Ns PHA 07/02/24 Complete 1000ml) 20:30 Ketorolac PHA 07/02/24 Complete Tromethamine 30mg/Ml 20:30 Basic Metabolic Panel LAB 07/02/24 Complete 20:14 Ct Abdomen/Pelvis CT 07/02/24 Resulted W/Contrast 21:04 Iohexol (Omnipaque) PHA 07/02/24 Complete 21:19 Levofloxacin 750mg PHA 07/02/24 Complete Tab (Levaquin 750mg T 23:00 Clindamycin 150mg Cap PHA 07/02/24 Complete (Cleocin 150mg Cap 23:00 Current Medications Medications (Trade) Dose Ordered Sig/Bernardo Route PRN Reason Start Time Stop Time Status Last Admin Dose Admin Clindamycin HCl (Cleocin 150mg Cap) 300 mg ONCE ONCE PO 07/02/24 23:00 07/02/24 23:01 DC 07/02/24 23:00 Iohexol (Omnipaque) 75 ml STK-MED ONCE IV 07/02/24 21:19 07/02/24 21:20 DC Ketorolac Tromethamine (toRADol) 30 mg ONCE ONCE IVP 07/02/24 20:30 1/17/25 20:31 DC 07/02/24 20:44 Levofloxacin (LEvaquIN 750MG TAB) 750 mg ONCE ONCE PO 07/02/24 23:00 07/02/24 23:01 DC 07/02/24 23:20 Sodium Chloride 1,000 ml @ 0 mls/hr ONCE ONCE IV 07/02/24 20:30 07/02/24 20:31 DC 07/02/24 20:43 Vital Signs Date Time Temp Pulse Resp B/P (MAP) Pulse Ox O2 Delivery O2 Flow Rate FiO2 07/02/24 23:25 98.2 80 20 147/83 Room Air* 0 21 07/02/24 22:00 98.2 77 20 125/77 Room Air* 0 21 07/02/24 20:20 98.2 81 20 126/78 Room Air* 0 21 07/02/24 19:54 98.2 85 16 141/88 99 Room Air 2015/HOSPITALIST PAGED FOR READMISSION AFTER PATIENT SIGNED OUT AGAINST MEDICAL ADVICE YESTERDAY. WE WILL ORDER SOME BASIC LABS TO INCLUDE FLUIDS AND PAIN MANAGEMENT. 2054/SPOKE WITH [facility] NURSE PROTOTYPE ENGINEER MANAGER. SHE INFORMED ME WE NO LONGER HAVE OB ON-CALL. I WILL WORK PATIENT UP FOR TUBO-OVARIAN ABSCESS SHE WAS ADMITTED FOR TWO DAYS AGO AND IF PRESENT, WE WILL LOOK FORWARD TO TRANSFER PATIENT TO A HIGHER LEVEL OF CARE 10:00 p.m. patient was signed out to me by Adan Aguilera NP. I am familiar with the patient from recent evaluation. Ms. Mi left AMA after hospitalization and returned today stating that she is ready for the drainage. Labs reviewed CBC is normal BNP 7 is also normal. A CT scan of the pelvis was done which is pending at this time 11:00 p.m.-CT scan of the pelvis showed a complex ovarian cyst on the left side and there was no fallopian tube fluid as was described before. The radiologist's felt this maybe a tubo-ovarian abscess. Clinically there are no signs of systemic inflammatory response I had a long discussion with the patient and explained to her about the CT findings. Answered all her questions.Patient is instructed to [facility] and have a staff engineer evaluation clay. Currently she remains afebrile with normal WBC count and a question of a left complex ovarian cyst which needs to be further evaluated. She stated that she will follow up with the [facility]. The interim we will give her the same antibiotics given while she was hospitalized by ID physician Medical Decision Making MDM MDM: Differential diagnosis: Ovarian cyst, complex ovarian cyst, tubo-ovarian mass, tubo-ovarian abscess Rationale: Tests considered and ordered secondary to shared decision making include: Previous outside records reviewed: Old ER visits. Risk of complication and/or morbidity or mortality of patient management: None Medications-Per medication reconciliation Need for hospitalization: Patient does not meet criteria for hospitalization. Need for emergency major/minor surgery: No There are no social concerns with this patient. Prescription drug management Prescriptions will include symptomatic care Patient's prior external medical records from other ER visits were reviewed by me as indicated. Prior testing and results from previous visits were reviewed. Prior tests were taken into account with medical decision making and resource utilization, independent historian/historians were used to obtain complete medical history. I independently interpreted the test that were performed, results were reviewed by me and considered findings on radiology if ordered. Medical management and examination interpretation discussions were had by me with other qualified healthcare professionals as indicated for the patient's care. Problem List Problem List: (1) UTI (urinary tract infection) (2) Polysubstance abuse (3) Cocaine abuse (4) Tubo-ovarian abscess DX & DISP Disposition: Discharge Departure Impression: Primary Impression: UTI (urinary tract infection) Additional Impressions: Polysubstance abuse, Cocaine abuse, Marijuana use, Ovarian cyst Condition: Stable Scripts Nystatin (Mycostatin Cream) 100,000 Unit/Gram Crm 1 APPL TP BID for 7 Days, #30 GM 0 Refills apply to affected area(s) Prov: JJ GASTELUM MD 07/02/24 Ondansetron (Ondansetron Odt) 4 Mg Tab.rapdis 4 MG PO Q6HPRN PRN for nausea, #16 TAB 0 Refills Prov: JJ GASTELUM MD 07/02/24 Clindamycin HCl (Clindamycin HCl) 300 Mg Capsule 1 CAP PO QID for 10 Days, #40 CAP 0 Refills Prov: JJ GASTELUM MD 07/02/24 Levofloxacin (Levofloxacin) 750 Mg Tablet 1 TAB PO DAILY for 10 Days, #10 TAB 0 Refills Prov: JJ GASTELUM MD 07/02/24 Additional Instructions: Patient and the caregiver have been informed of all the diagnostic tests and the imaging conducted during the today's visit to the emergency room and has verbalized understanding of the results I have personally reviewed and interpreted all diagnostic exams performed here in the ER today as well as the vital signs documented by the nursing staff. The patient is now being discharged to home and should follow up with the primary care physician or the specialist as directed by the ER staff. Follow-up with primary care provider in 1 to 2 days. Take medications as directed here in the emergency room. Okay to continue home medications unless otherwise discussed during your visit in the emergency room today. Return to your nearest emergency room if symptoms worsen or if there is no improvement. Call 911 if you need immediate assistance. Take Tylenol or Motrin [id number] as needed and if no contraindications are present. Increase oral hydration. A wound culture or urine culture was ordered here in the emerg ency room department please follow-up with primary care provider and advise them to get repeat ports from our facility. If you had any Jc wrap/splints that were applied here, please do not remove them until you see your primary care or specialty. Patient must follow [facility] with [facility] for evaluation of the ovarian cyst Referrals: SELF,REFERRAL (PCP) ADAN NAVARRETE NP Jul 02, 2024 20:14 JJ GASTELUM MD Jul 02, 2024 22:45
[2024-07-02] MEDS: 0.9%NACL 1000ML 1,000 ML IV ONE (20:43)
[2024-07-02] MEDS: ketOROlac 30MG VIAL (30MG/ML) IVP ONE (20:44)
[2024-07-02 20:55] LABS: BASOPHILS # (AUTO) 0.04 K/uL (0.00-0.20); BASOPHILS % (AUTO) 0.6 % (0.0-5.0); EOSINOPHILS # (AUTO) 0.05 K/uL (0.00-0.70); EOSINOPHILS % (AUTO) 0.8 % (0.0-8.0); HEMATOCRIT 37.4 % (36-48); IMMATURE GRANULOCYTE ABSOLUTE 0.03 K/uL (0-1); LYMPHOCYTES # (AUTO) 1.4 K/uL (1.0-4.8); LYMPHOCYTES % (AUTO) 20.9 % (21.0-51.0); MEAN CORPUSCULAR HGB CONC 32.4 g/dL (32.0-36.0); MEAN CORPUSCULAR VOLUME 89.7 fL (79-99); MONOCYTES # (AUTO) 0.4 K/uL (0.1-1.0); MONOCYTES % (AUTO) 6.5 % (3.0-13.0); NEUTROPHILS # (AUTO) 4.6 K/uL (1.8-7.7); NEUTROPHILS % (AUTO) 70.7 % (40.0-77.0); PLATELET COUNT (AUTO) 289 K/uL (130-400); RED BLOOD CELL COUNT(AUTO) 4.17 MIL/uL (4.00-5.50); RED CELL DISTRIBUTION WIDTH 12.7 % (11.0-15.5); WHITE BLOOD COUNT (AUTO) 6.5 K/uL (4.8-10.8)
[2024-07-02 21:15] LABS: CREATININE 0.6 mg/dL (0.5-1.0); POTASSIUM 3.7 mmol/L (3.5-5.1)
[2024-07-02] MEDS ORDERED: IOHEXOL-350 75 ML VIAL IV ONE (21:19)
[2024-07-02 21:32] LABS: APPEARANCE,URINE CLOUDY (CLEAR); BILIRUBIN,URINE NEGATIVE (NEGATIVE); COLOR,URINE YELLOW (YELLOW); GLUCOSE, URINE (UA) NEGATIVE (NEGATIVE); KETONES,URINE NEGATIVE (NEGATIVE); LEUKOCYTE ESTERASE ,URINE 500 Leu/uL (NEGATIVE); NITRATE,URINE NEGATIVE (NEGATIVE); OCCULT BLOOD,URINE MODERATE (NEGATIVE); PH,URINE 5.5 (5.0-8.0); PROTEIN,URINE 20 mg/dL (NEGATIVE); UROBILINOGEN,URINE 0.2 mg/dL (0.2-1.0)
[2024-07-02 21:33] LABS: ADD UA MICROSCOPIC YES
[2024-07-02 21:38] LABS: BACTERIA,URINE RARE /HPF (None Seen); MUCUS,URINE RARE LPF (None Seen); SQUAMOUS EPITHELIAL CELL,UR MANY /HPF (0-2)
--- NOTE | 2024-07-02 22:33 | HMCIMG ---
CT ABDOMEN/PELVIS W/CONTRAST HISTORY: Left abdominal pelvic pain COMPARISON: None TECHNIQUE: Multiple sequential axial images of the abdomen and pelvis were obtained from the dome of the diaphragm through symphysis pubis. Patient was given 75 cc of Omnipaque through intravenous route. Oral contrast was not given. FINDINGS: No pleural effusion is seen bilaterally. There is no evidence of parenchymal disease or pulmonary nodule of the visualized lower lungs. Degenerative changes of the thoracolumbar spine are present. The heart is not enlarged. Gastric distention is seen. Liver measures 18 cm. The liver, spleen, adrenal glands and pancreas are unremarkable. There is no evidence of hydronephrosis bilaterally. No evidence of renal stone is seen. Fecal material is seen in the colon. There are normal size retroperitoneal and mesenteric lymph nodes. No ascites is seen. Appendix is not well seen limiting evaluation. Complex cystic structure is seen in the left ovary measures 3.3 cm may be related to tubo-ovarian abscess. Scarring is seen in the left anterior pelvic wall. Pelvic sidewalls are symmetric bilaterally. Bladder is poorly distended. IMPRESSION: 1. Complex cystic structure is seen in the left ovary measures 3.3 cm may be related to tubo-ovarian abscess. Scarring is seen in the left anterior pelvic wall. CT was performed with one or more following dose reduction techniques: automated exposure control, adjustment of the mA and kv according to patient's size, or use of a iterative reconstruction technique.
[2024-07-02] MEDS: CLINDAMYCIN 150 MG CAP PO ONE (23:00)
[2024-07-02] MEDS ORDERED: ONDA-243 PO (23:04)
[2024-07-02] MEDS ORDERED: NYST30C TP (23:04)
[2024-07-02] MEDS ORDERED: LEVO750T40 PO (23:04)
[2024-07-02] MEDS ORDERED: CLIN-141 PO (23:04)
[2024-07-02] MEDS: levoFLOXacin 750 MG TABLET PO ONE (23:20)
[2024-07-02 23:25] VITALS: BP 147/83; PULSE 80; RESP 20; TEMP 98.3
== END 2024-07-02 23:33 | disposition home or self-care (01) ==
LOC: EDH 19:53
DX: N39.0 Urinary tract infection, site not specified (principal); F19.10 Other psychoactive substance abuse, uncomplicated; F14.10 Cocaine abuse, uncomplicated; F12.10 Cannabis abuse, uncomplicated; N83.209 Unspecified ovarian cyst, unspecified side; E11.9 Type 2 diabetes mellitus without complications; Z88.0 Allergy status to penicillin; Z88.5 Allergy status to narcotic agent; Z90.710 Acquired absence of both cervix and uterus; Z98.890 Other specified postprocedural states
CPT/HCPCS: 99285; 74177; 96374; 96361; 80048; 85025; 81001; 36415; J1885; J7030; Q9967

== ENCOUNTER 2025-02-07 21:30 | Emergency (ER) | payer SELFPAY ==
[~2025-02-07] VITALS: Ht 154.9 cm
[~2025-02-07 21:30] MED LIST changes: +CLIN-141 PO; -LEVO-70 PO; +LEVO750T90 PO; -METR-172 PO; +NYST30C TP; +ONDA-243 PO; -SULF1TAB42 PO
--- NOTE | 2025-02-07 21:50 | ERN ---
ED Note History of Present Illness Stated Complaint: C/O N X V, PAIN TO FACE, BLURRY VISION Chief Complaint: Multiple Complaints Time Seen by MD: 21:40 Dictation: This is a 49-year-old female who presented to the emergency room complaining of abdominal pain and nausea vomitings of more than 24 hour duration. She also reported that she has some pain in the face. Abdominal pain is diffuse and no evidence of any hematemesis or melena. She stated that she was at [employer] store shopping when she started having the headache and felt very sick with nausea vomitings. She asked someone to call the ambulance and come to the ER. Temperature 98.4 pulse 81 respirations 20 blood pressure 136/72 with a pulse oximetry of 97% on room air Chronic medical problems include asthma, cluster headaches, ovarian cyst and a history of tubo-ovarian mass/abscess Allergies: Coded Allergies: Penicillins (Verified Allergy, Unknown, 02/28/22) morphine (Verified Allergy, Unknown, 11/08/23) Home Meds Active Scripts Nystatin (Mycostatin Cream) 100,000 Unit/Gram Crm, 1 APPL TP BID for 7 Days, #30 GM 0 Refills apply to affected area(s) Prov:JJ GASTELUM MD 07/02/24 Ondansetron (Ondansetron Odt) 4 Mg Tab.rapdis, 4 MG PO Q6HPRN PRN for nausea, #16 TAB 0 Refills Prov:JJ GASTELUM MD 07/02/24 Clindamycin HCl (Clindamycin HCl) 300 Mg Capsule, 1 CAP PO QID for 10 Days, #40 CAP 0 Refills Prov:JJ GASTELUM MD 07/02/24 Levofloxacin (Levofloxacin) 750 Mg Tablet, 1 TAB PO DAILY for 10 Days, #10 TAB 0 Refills Prov:JJ GASTELUM MD 07/02/24 Past Medical History Past Medical History: Asthma, Ovarian Cyst, Other Additional Past Medical Hx: HX OF CLUSTER HEADACHES Surgical History: Other, Surgical History Other: HERNIA REPAIR Family History: Negative Social History: Drugs (Cocaine), ETOH, Negative, Other History: Not Applicable LMP: Jan 19, 2025 RN Note Reviewed/Agreed w/PFSH: Yes Review of System Dictation Constitutional: Negative for fever,chills, and weight loss Eyes: Negative for injury, pain,redness, and discharge ENT: Negative for injury,pain or swelling Cardiovascular: Negative for chest pain, palpitations, and edema Respiratory: Negative for shortness of breath, cough, and wheezing, Abdomen/GI: Positive for abdominal pain, nausea, vomiting, denied diarrhea, and constipation Back: Negative for injury and pain : Negative for injury, bleeding and discharge MS/Extremity: Negative for injury and deformity Skin: Negative for rash, and discoloration Neuro: Negative for headache, weakness, numbness, tingling, and seizure Psych: Negative for suicide ideation, homicidal ideation, and hallucinations Initial Vital Sign VS Vital Signs Date Time Temp Pulse Resp B/P (MAP) Pulse Ox O2 Delivery O2 Flow Rate FiO2 02/07/25 21:33 98.4 81 20 136/72 97 Room Air 02/07/25 21:55 0 21 Physical Exam Dictation General: awake, alert, NAD Head/Face: Normocephalic, atraumatic Eyes: PERRL, EOMI, vision at baseline ENT: oral cavity clear, TMs clear, no signs of infection Neck: Trachea midline, supple, no nuchal rigidity Cardiovascular: RRR, normal S1/S2, No MRGs, no JVD Respiratory: CTAB, no respiratory distress, No rales or wheezes Abdomen: Soft, non-tender, non-distended, normal bowel sounds, no guarding or rebound. Skin: Warm, dry, normal turgor, no rash MS/Extremity: Pulses equal, no cyanosis, neurovascular intact, FROM Neuro: COAx4, GCS 15, strength 5/5, CN 2-12 intact, normal cerebellar exam, normal gait, Psych: Normal behavior, mood, and affect normal Extremities-trace edema without any palpable cords, Homans sign is negative Results (Laboratory/Radiology) Laboratory/Radiology Laboratory Tests Test 02/07/25 21:59 White Blood Count 8.7 K/uL (4.8-10.8) Red Blood Count 4.14 MIL/uL (4.00-5.50) Hemoglobin 12.6 g/dL (12.0-16.0) Hematocrit 38.2 % (36-48) Mean Corpuscular Volume 92.3 fL (79-99) Mean Corpuscular Hemoglobin 30.4 pg (27.0-33.0) Mean Corpuscular Hemoglobin Concent 33.0 g/dL (32.0-36.0) Red Cell Distribution Width 13.1 % (11.0-15.5) Platelet Count 255 K/uL (130-400) Mean Platelet Volume 10.3 fL (7.5-10.5) Immature Granulocyte % (Auto) 0.5 % (0-1) Neutrophils (%) (Auto) 65.0 % (40.0-77.0) Lymphocytes (%) (Auto) 24.0 % (21.0-51.0) Monocytes (%) (Auto) 8.6 % (3.0-13.0) Eosinophils (%) (Auto) 1.4 % (0.0-8.0) Basophils (%) (Auto) 0.5 % (0.0-5.0) Neutrophils # (Auto) 5.7 K/uL (1.8-7.7) Lymphocytes # (Auto) 2.1 K/uL (1.0-4.8) Monocytes # (Auto) 0.8 K/uL (0.1-1.0) Eosinophils # (Auto) 0.12 K/uL (0.00-0.70) Basophils # (Auto) 0.04 K/uL (0.00-0.20) Absolute Immature Granulocyte (auto 0.04 K/uL (0-1) Nucleated Red Blood Cells 0.0 % (0.0-0.19) Sodium Level 137 mmol/L (136-145) Potassium Level 3.8 mmol/L (3.5-5.1) Chloride Level 101 mmol/L (101-111) Carbon Dioxide Level 33 mmol/L (21-32) H Blood Urea Nitrogen 9 mg/dL (7-18) Creatinine 0.5 mg/dL (0.5-1.0) Glomerular Filtration Rate Calc 116 mL/min (>90) Random Glucose 92 mg/dL (70-105) Total Calcium 8.2 mg/dL (8.5-10.1) L Lipase 38 U/L (16-77) Labs Reviewed?: Yes ED Course ED Course Orders Procedure Category Date Status Time Cbc With Differential LAB 02/07/25 Complete 21:44 Basic Metabolic Panel LAB 02/07/25 Complete 21:44 Urinalysis Profile LAB 02/07/25 Logged 21:44 0.9% Nacl 500ml PHA 02/07/25 Complete Iv.Soln (Ns 500ml 22:00 ,Urine Test LAB 02/07/25 Logged 21:44 Ondansetron 4mg Inj PHA 02/07/25 Complete (Zofran 4mg Inj) 22:00 Lipase LAB 02/07/25 Complete 21:44 Drug Screen Urine LAB 02/07/25 Logged 21:48 Ketorolac PHA 02/07/25 Complete Tromethamine 30mg/Ml 22:00 Ketorolac PHA 02/07/25 Complete Tromethamine 30mg/Ml 22:00 Diphenhydramine Hcl PHA 02/07/25 Complete (Benadryl Inj) 22:30 Current Medications Medications (Trade) Dose Ordered Sig/Bernardo Route PRN Reason Start Time Stop Time Status Last Admin Dose Admin Diphenhydramine HCl (BENAdryl INJ) 25 mg ONCE ONCE IV 02/07/25 22:30 02/07/25 22:31 DC 02/07/25 22:23 Ketorolac Tromethamine (toRADol) 30 mg ONCE ONCE IVP 02/07/25 22:00 02/07/25 22:01 DC 02/07/25 22:03 Ketorolac Tromethamine (toRADol) 30 mg STK-MED ONCE .ROUTE 02/07/25 22:00 02/07/25 22:01 DC Ondansetron HCl (zoFRAN 4MG INJ) 4 mg ONCE ONCE IVP 02/07/25 22:00 02/07/25 22:01 DC 02/07/25 22:03 Sodium Chloride 500 ml @ 0 mls/hr ONCE ONCE IV 02/07/25 22:00 02/07/25 22:01 DC 02/07/25 22:03 Vital Signs Date Time Temp Pulse Resp B/P (MAP) Pulse Ox O2 Delivery O2 Flow Rate FiO2 02/07/25 21:55 98.2 77 18 127/74 97 Room Air* 0 21 02/07/25 21:33 98.4 81 20 136/72 97 Room Air We will perform diagnostic labs, and administer medications according to the patient's complaint. Once the results are available, will review and personally interpreted the labs to rule out any acute life-threatening emergency the trach require immediate intervention and treatment. I will then re-evaluate the patient after treatment and diagnostic exams have return to determine whether the patient requires any further testing, can safely be discharged home or need further admission to hospital for additional treatment and evaluation. 10:50 p.m. Reviewed labs CBC is with a normal limits BNP 7 is significant for bicarb of 33 Before I could reassess her patient is signed out AMA due to personal obligations Medical Decision Making MDM Differential diagnosis: Gastritis, duodenitis, esophagitis, cluster headache, migraine Head Rationale: Tests considered and ordered secondary to shared decision making include: Previous outside records reviewed: Old ER visits. Risk of complication and/or morbidity or mortality of patient management: None Medications-Per medication reconciliation Need for hospitalization: Patient does not meet criteria for hospitalization. Need for emergency major/minor surgery: No There are no social concerns with this patient. Prescription drug management Prescriptions will include symptomatic care Patient's prior external medical records from other ER visits were reviewed by me as indicated. Prior testing and results from previous visits were reviewed. Prior tests were taken into account with medical decision making and resource utilization, independent historian/historians were used to obtain complete medical history. I independently interpreted the test that were performed, results were reviewed by me and considered findings on radiology if ordered. Medical management and examination interpretation discussions were had by me with other qualified healthcare professionals as indicated for the patient's care. Problem List Problem List: (1) Cluster headache syndrome (2) Gastritis (3) Polysubstance abuse DX & DISP Disposition: Discharge Departure Impression: Primary Impression: Cluster headache syndrome Additional Impressions: Gastritis, Polysubstance abuse Condition: Stable Additional Instructions: Patient signed out against medical advice from the emergency room. As per the primary nurse patient does not wish to continue any treatment at this time and is refusing to stay and complete the evaluation and disposition. The patient is fully aware of all the risks and benefits of leaving against medical advice. Possible benefits include correction of the current medical condition and impr ovement of symptoms. However the patient was advised the possible risks of leaving against medical advice include worsening of the current medical condition, including or causing . The patient and caregiver verbalized understanding of the risks and benefits discussed and despite this, the patient has signed out against medical advice. Please refer to the nursing documentation for further details. Patient has was advised to follow up at least with their primary care physician as soon as possible or return to the emergency department if symptoms worsen Referrals: SELF,REFERRAL (PCP) JJ GASTELUM MD Feb 07, 2025 21:50
[2025-02-07 21:55] VITALS: BP 127/74; PULSE 77; RESP 18; TEMP 98.2; O2SAT 97
[2025-02-07] MEDS: 0.9% NACL 500ML IV.SOLN 500 ML IV ONE (22:03)
[2025-02-07 22:05] LABS: IMMATURE GRANULOCYTE ABSOLUTE 0.04 K/uL (0-1); NUCLEATED RED BLOOD CELLS 0.0 % (0.0-0.19); PLATELET COUNT (AUTO) 255 K/uL (130-400); RED BLOOD CELL COUNT(AUTO) 4.14 MIL/uL (4.00-5.50); RED CELL DISTRIBUTION WIDTH 13.1 % (11.0-15.5); WHITE BLOOD COUNT (AUTO) 8.7 K/uL (4.8-10.8)
[2025-02-07 22:14] LABS: CREATININE 0.5 mg/dL (0.5-1.0); GLOMERULAR FILTR. RATE CALC 116.0 mL/min (>90); GLUCOSE,RANDOM 92.0 mg/dL (70-105); SODIUM SERUM 137.0 mmol/L (136-145); UREA NITROGEN, BLOOD 9.0 mg/dL (7-18)
--- NOTE | 2025-02-07 22:56 | NUR ---
PATIENT REQUESTED TO LEAVE AGAINST MEDICAL ADVICE. PATIENT EDUCATED THAT LEAVING AMA POSES RISKS INCLUDING . PATIENT VERBALIZED UNDERSTANDING AND SIGNED AMA DOCUMENTATION. PATIENT EDUCATED TO CALL 911 OR RETURN TO ER IN THE EVENT OF AN EMERGENCY.
== END 2025-02-07 22:59 | disposition left against medical advice (07) ==
LOC: EDH 21:30
DX: G44.009 Cluster headache syndrome, unspecified, not intractable (principal); K29.70 Gastritis, unspecified, without bleeding; F19.10 Other psychoactive substance abuse, uncomplicated; J45.909 Unspecified asthma, uncomplicated; R11.2 Nausea with vomiting, unspecified; Z87.42 Personal history of other diseases of the female genital tract; Z88.0 Allergy status to penicillin; Z88.5 Allergy status to narcotic agent; Z98.890 Other specified postprocedural states
CPT/HCPCS: 99284; 96374; 96375; 80048; 83690; 85025; 36415; J1885; J7040; J1200; J2405